=== PATIENT | male | born 1940 | race Caucasian/White ===

== ENCOUNTER 2019-07-25 11:11 | Outpatient (CLI) | payer MEDICARE, SELFPAY ==
--- NOTE | ~2019-07-25 | XR_ITS ---
EXAMINATION: XR shoulder RT min 2V DATE: 07/25/2019 11:31 INDICATION: Right shoulder pain. TECHNIQUE: 4 views of right shoulder were obtained. COMPARISON: None. FINDINGS: Bone alignment is normal. No fracture. Glenohumeral joint is normal. There is mild acromioc lavicular joint osteoarthritis. IMPRESSION: 1. Mild right acromioclavicular joint osteoarthritis. Reviewed, dictated and finalized at location E.
== END 2019-07-25 11:12 | disposition home or self-care (01) ==
PROVIDERS: PCP Internal Medicine; Visit Provider Internal Medicine
DX: M25.511 Pain in right shoulder (principal); W19.XXXA Unspecified fall, initial encounter; M19.011 Primary osteoarthritis, right shoulder
CPT/HCPCS: 73030

== ENCOUNTER 2019-08-11 07:28 | Outpatient (CLI) | payer MEDICARE, SELFPAY ==
--- NOTE | ~2019-08-11 | MR_ITS ---
EXAMINATION: MR shoulder RT wo con DATE: 08/11/2019 08:18 INDICATION: Anterosuperior right shoulder pain TECHNIQUE: Magnetic resonance imaging (MRI) of the right shoulder was performed without intravenous c ontrast. Sequences included axial PD-weighted FS FSE, coronal oblique PD-weighted FS FSE, coronal obl ique T2-weighted FS FSE, sagittal PD-weighted FS FSE, and sagittal T1-weighted SE. COMPARISON: Right shoulder radiographs dated 07/25/2019 FINDINGS: Coracoacromial arch: The acromion undersurface is curved in morphology (type II). The coracoacromial ligament is normal. M oderate acromioclavicular osteoarthritis. Rotator cuff: Severe supraspinatus and mild to moderate infraspinatus tendinopathy. There is an oblique full-thickn ess tear extending across the supraspinatus tendon. The tear versus conform to a longitudinal split t ear extending along the axis of the tendon fibers in the distal 3 cm of the tendon there is however n o widening of the tear plane, measurable fluid signal intensity tear defect or discrete retracted tea r margin. The teres minor tendon is normal. Moderate subscapularis tendinopathy with additional longi tudinal split tearing extending along the fibers in the distal 3 cm the tendon. Associated small intr amuscular ganglion cyst at the myotendinous junction of the central third of the tendon. Normal rotat or cuff muscle bulk and signal. Biceps tendon, glenoid labrum and glenohumeral cartilage: Long head of the biceps tendon is normal. There is a tear extending from the 12:00-9:00 position of t he posterior superior glenoid labrum. Partial-thickness cartilage loss with smooth chondral surface a long the posterior superior glenoid. Deeper full/near full-thickness chondral fissure is a rim of the 11:00 position of the posterosuperior glenoid. Cartilage the humeral head appears relatively preserv ed. Fluid: Small glenohumeral joint effusion. No loose osteochondral bodies. Small amount of fluid in the subacr omial/subdeltoid bursa and subcoracoid bursa which could be related to bursitis or more likely decomp ression of the glenohumeral joint effusion through the full-thickness supraspinatus tendon split tear . Bones: Normal marrow signal with no edema, fracture or pathologic marrow replacing process. Mild cystic linn ge at the greater tuberosity. IMPRESSION: 1. Severe supraspinatus tendinopathy with full-thickness longitudinal split tear extending along the distal 3 cm the tendon. 2. Moderate subscapularis tendinopathy with additional less severe partial thickness intrasubstance s plit tearing also in the distal 3 cm the tendon. 3. Superior, anterior to posterior tear of the glenoid labrum (SLAP tear) of the posterior superior l abrum extending from the 12:00-9:00 position. 4. Mild glenohumeral osteoarthritis with partial thickness cartilage loss and deep chondral fissuring at the posterior superior glenoid. 5. Moderate acromioclavicular osteoarthritis. 6. Fluid in the subacromial/subdeltoid and subcoracoid bursae which could be related to bursitis or m ore likely decompression of a glenohumeral effusion through the full-thickness supraspinatus tendon t ear. Reviewed, dictated and finalized at location A. IMPRESSION: 1. Severe supraspinatus tendinopathy with full-thickness longitudinal split tea r extending along the distal 3 cm the tendon. 2. Moderate subscapularis tendinopathy with additional less severe partial thic kness intrasubstance split tearing also in the distal 3 cm the tendon. 3. Superior, anterior to posterior tear of the glenoid labrum (SLAP tear) of th e posterior superior labrum extending from the 12:00-9:00 position. 4. Mild glenohumeral osteoarthritis with partial thickness cartilage loss and d eep chondral
== END 2019-08-11 07:29 | disposition home or self-care (01) ==
PROVIDERS: PCP Internal Medicine; Visit Provider Internal Medicine
DX: M25.519 Pain in unspecified shoulder (principal); S43.431A Superior glenoid labrum lesion of right shoulder, initial encounter; M75.81 Other shoulder lesions, right shoulder; M19.011 Primary osteoarthritis, right shoulder
CPT/HCPCS: 73221

== ENCOUNTER 2021-01-25 10:04 | Emergency (ER) | payer MEDICARE, SELFPAY ==
--- NOTE | 2021-01-25 10:15 | ED.URI ---
HPI - URI/Sore Throat General Chief Complaint: Upper Respiratory Infection Stated Complaint: Cough,Body Aches,Chest Congestion Time Seen by Provider: 01/25/21 10:16 Source: patient and RN notes reviewed Mode of arrival: ambulatory Limitations: no limitations History of Present Illness HPI Narrative: 80-year-old male presents with concern for 9-day history of sinus drainage and congestion. Reports he was seen by his doctor on Tuesday and was given cough medicine and medicine for dizziness. Reports the dizziness resolved after taking that medication. Reports on Tuesday his symptoms worsened with worsening cough, body aches, chest congestion. Reports he has been taking the cough medicine as prescribed but symptoms are worsening. He reports he has been vaccinated for Covid and flu. MD elicited complaint: cough Related Data Home Medications Medication Instructions Recorded Confirmed aspirin [Adult Low Dose Aspirin] 81 mg PO DAILY 01/12/19 01/25/21 ezetimibe [Zetia] 10 mg PO DAILY 01/12/19 01/25/21 fenofibrate nanocrystallized 145 mg PO DAILY 01/12/19 01/25/21 metoprolol succinate 50 mg PO DAILY 01/12/19 01/25/21 rivaroxaban [Xarelto] 20 mg PO DAILY 01/12/19 01/25/21 Allergies Allergy/AdvReac Type Severity Reaction Status Date / Time No Known Allergies Allergy Verified 01/25/21 10:23 Review of Systems Review of Systems: CONSTITUTIONAL: Reports malaise. Denies chills, sweats, or fever. EYES: Denies visual changes, redness, or discharge. ENT: Reports rhinorrhea, congestion. Denies sinus pain, otalgia, sore throat CARDIOVASCULAR: Denies chest pain, palpitations, or edema. RESPIRATORY: Reports productive persistent cough. Denies dyspnea. GASTROINTESTINAL: Denies abdominal pain, nausea, vomiting, diarrhea SKIN: Denies rash or itching. MUSCULOSKELETAL: Reports myalgia. NEUROLOGIC: Denies headache. All systems reviewed & are unremarkable except as noted in HPI and below PMFSH Past Medical History Medical History (Updated 01/25/21 @ 10:42 by Carmencita Dewitt NP) Elevated lipids Surgical History Surgical History History of heart artery stent History of hernia repair History of knee replacement Family History Family History Father Acute myocardial infarction Family history of coronary artery disease Mother Carcinoma of colon Other Family history of malignant neoplasm Social History Social History (Updated 01/13/21 @ 06:59 by Roma Cotter [facility]) Smoking packs per day: 0.25 Smoking cigarettes per day: 5.0 Years smoked: 5 Smoking pack-years: 1.25 Tobacco type: cigarettes Second hand tobacco smoke exposure: No Smoking end date: 03/07/91 Alcohol intake: never Substance use: never Substance use type: does not use Comments At time of signature, agree with nursing past medical, surgical, social and family history. There is no relevant family history pertinent to the presenting complaint Exam Narrative: GENERAL: Well-appearing, well-nourished, and in no acute distress. HEAD: Normocephalic EYES: PERRLA, conjunctivae clear ENT: Nares clear, green discharge. Mucous membranes moist. TM pearly becerra with dull light reflex bilaterally; no tragal tenderness. Oropharynx not erythematous without lesions. Tonsils not enlarged and without exudate, no drooling, no hoarseness, no trismus, uvula midline. NECK: Supple. No lymphadenopathy CHEST: Clear to auscultation, breath sounds equal. No wheezing, rhonchi, rales, or stridor. No respiratory distress, speaks in full sentences. Cough noted HEART: Regular rate and rhythm. No murmur heard. SKIN: Warm, dry, no rash. NEURO: Alert and oriented x3. PSYCH: Normal mood and affect Course Course Emergency Course: Patient is aware of diagnosis, understands and agrees to treatment plan. Anticipatory guidance given. Patient agrees to follow-up as directed
[2021-01-25 10:20] VITALS: BP 119/88; PULSE 96; RESP 20; TEMP 36.9; O2SAT 97
== END 2021-01-25 10:50 | disposition home or self-care (01) ==
PROVIDERS: Emergency Provider Nurse Practitioner; PCP Internal Medicine
DX: J32.9 Chronic sinusitis, unspecified (principal); J40 Bronchitis, not specified as acute or chronic; F17.210 Nicotine dependence, cigarettes, uncomplicated; Z79.82 Long term (current) use of aspirin
CPT/HCPCS: 99213; G0463

== ENCOUNTER 2021-03-31 16:10 | Emergency (ER) | payer MEDICARE, SELFPAY ==
--- NOTE | ~2021-03-31 | XR_ITS ---
XR chest 2V DATE: 03/31/2021 16:46 INDICATION: Cough, wheezing TECHNIQUE: 2 views COMPARISON: 01/25/2016 FINDINGS: Normal heart size. There is aortic calcification and tortuosity. No hilar or mediastinal enlargement. No pulmonary infiltrate or consolidation, pulmonary vascular congestion or pleural effu will or pneumothorax. Degenerative spurring of the thoracic and lumbar spine. IMPRESSION: No active cardiopulmonary disease Aortic calcification and tortuosity Reviewed, dictated and finalized at location A. LIGHTER
--- NOTE | 2021-03-31 16:24 | ED.URI ---
HPI - URI/Sore Throat General Chief Complaint: Upper Respiratory Infection Stated Complaint: Cough,Runny Nose Time Seen by Provider: 03/31/21 16:25 Source: patient and RN notes reviewed History of Present Illness HPI Narrative: Patient is an 81-year-old male who presents the urgent care with complaints of persistent post Covid cough and runny nose. Patient was seen at the facility in January and given a Medrol Dosepak and codeine cough medication. Patient states that he did the cough medication until it was complete. Patient states that his positive Covid test was 12 days ago. Patient denies of any recent fevers, nausea, vomiting, shortness of breath or chest pain. Patient states that he has been a to work out doing his normal activities. No other acute complaints. No acute distress noted. Patient aware of the plan of care. Some parts of this dictation were generated by voice recognition software and may contain typographical and/or grammatical inaccuracies. Related Data Home Medications Medication Instructions Recorded Confirmed aspirin [Adult Low Dose Aspirin] 81 mg PO DAILY 01/12/19 03/31/21 ezetimibe [Zetia] 10 mg PO DAILY 01/12/19 03/31/21 fenofibrate nanocrystallized 145 mg PO DAILY 01/12/19 03/31/21 metoprolol succinate 50 mg PO DAILY 01/12/19 03/31/21 rivaroxaban [Xarelto] 20 mg PO DAILY 01/12/19 03/31/21 Allergies Allergy/AdvReac Type Severity Reaction Status Date / Time No Known Allergies Allergy Verified 01/25/21 10:23 Review of Systems Review of Systems: CONSTITUTIONAL: Denies fever, chills, or sweats. EYES: Denies visual changes, redness, or discharge. ENT: Reports of rhinorrhea without sore throat or congestion CARDIOVASCULAR: Denies chest pain, palpitations, or edema. RESPIRATORY: Reports of cough without dyspnea or wheezing GASTROINTESTINAL: Denies abdominal pain, nausea, vomiting, or diarrhea. GENITOURINARY: Denies dysuria or hematuria. SKIN: Denies rash or itching. MUSCULOSKELETAL: Denies back pain, joint pain, or myalgia. NEUROLOGIC: Denies headache, numbness, or weakness. All other systems reviewed are negative, except as documented in HPI. [facility] Past Medical History Medical History (Updated 03/31/21 @ 17:36 by SUE Lizama) Elevated lipids Surgical History Surgical History History of heart artery stent History of hernia repair History of knee replacement Family History Family History Father Acute myocardial infarction Family history of coronary artery disease Mother Carcinoma of colon Other Family history of malignant neoplasm Social History Social History (Updated 01/13/21 @ 06:59 by Roma Cotter CNA) Smoking packs per day: 0.25 Smoking cigarettes per day: 5.0 Years smoked: 5 Smoking pack-years: 1.25 Tobacco type: cigarettes Second hand tobacco smoke exposure: No Smoking end date: 03/07/91 Alcohol intake: never Substance use: never Substance use type: does not use Comments At the time of my signature, I reviewed and agree with the nursing past medical, surgical, social, and family history. There is no relevant family history pertinent to the patient complaint. Exam Narrative: GENERAL: This is a well-nourished, well-developed patient, in no apparent distress. HEAD: normocephalic, atraumatic. EYES: PERRL. Sclera clear/white. Vision is grossly intact. EARS: External ears normal, auditory canals clear and without drainage, TMs normal without perforation. Hearing grossly intact. NOSE: External nose normal with no obvious nasal discharge, nares without redness, clear rhinorrhea. THROAT: Mucous membranes moist, posterior pharynx clear. NECK: Neck supple, non-tender without lymphadenopathy, masses or thyromegaly. CARDIOVASCULAR: Atrial fibrillation RESPIRATORY: Clear to auscultation. Slightly diminished left lower SKIN: warm, intact
[2021-03-31 16:36] VITALS: BP 140/94; PULSE 92; RESP 18; TEMP 35.9; O2SAT 98
== END 2021-03-31 17:42 | disposition home or self-care (01) ==
PROVIDERS: Emergency Provider Nurse Practitioner Family; PCP Internal Medicine
DX: J40 Bronchitis, not specified as acute or chronic (principal); R05.9 Cough, unspecified; U09.9 Post COVID-19 condition, unspecified; Z95.5 Presence of coronary angioplasty implant and graft; Z96.659 Presence of unspecified artificial knee joint; F17.210 Nicotine dependence, cigarettes, uncomplicated
CPT/HCPCS: 71046; 99213; G0463

== ENCOUNTER 2021-06-28 10:05 | Emergency (ER) | payer MEDICARE, SELFPAY ==
[2021-06-28 10:13] VITALS: BP 119/83; PULSE 86; RESP 18; TEMP 36.2; O2SAT 99
--- NOTE | 2021-06-28 10:13 | ED.URI ---
HPI - URI/Sore Throat General Chief Complaint: Upper Respiratory Infection Stated Complaint: Cough,Sinus Time Seen by Provider: 06/28/21 10:14 Source: patient Mode of arrival: ambulatory Limitations: no limitations History of Present Illness HPI Narrative: 81-year-old male presents with complaint of sinus and nasal congestion, postnasal drainage, intermittent sore throat related to drainage, cough for 2 to 3 days. Denies fever chills. Did start a generic allergy medication. Denies shortness of breath. Reports that he has been active and golfing outside. Recent symptoms have slowed him down causing facial pain. Reports he was here 6 months ago and received an antibiotic and steroids that really helped him. All systems reviewed and negative except as noted above. Related Data Home Medications Medication Instructions Recorded Confirmed aspirin [Adult Low Dose Aspirin] 81 mg PO DAILY 01/12/19 06/28/21 ezetimibe [Zetia] 10 mg PO DAILY 01/12/19 06/28/21 fenofibrate nanocrystallized 145 mg PO DAILY 01/12/19 06/28/21 metoprolol succinate 50 mg PO DAILY 01/12/19 06/28/21 rivaroxaban [Xarelto] 20 mg PO DAILY 01/12/19 06/28/21 Allergies Allergy/AdvReac Type Severity Reaction Status Date / Time No Known Allergies Allergy Verified 06/28/21 10:06 Review of Systems Review of Systems: CONSTITUTIONAL: Denies fever, chills, or sweats. EYES: Denies visual changes, redness, or discharge. ENT: Reports rhinorrhea, congestion, sore throat, or otalgia. CARDIOVASCULAR: Denies chest pain, palpitations, or edema. RESPIRATORY: Reports cough. Denies dyspnea. GASTROINTESTINAL: Denies abdominal pain, nausea, vomiting, or diarrhea. GENITOURINARY: Denies dysuria or hematuria. SKIN: Denies rash or itching. MUSCULOSKELETAL: Denies back pain, joint pain, or myalgia. NEUROLOGIC: Denies headache, numbness, or weakness. PSYCHIATRIC: Denies anxiety or depression. All other systems reviewed are negative, except as documented in HPI. [facility] Past Medical History Medical History (Updated 06/28/21 @ 10:28 by Irene Whittington NP) COVID-19 Elevated lipids Fasting hyperglycemia Surgical History Surgical History History of heart artery stent History of hernia repair History of knee replacement Family History Family History Father Acute myocardial infarction Family history of coronary artery disease Mother Carcinoma of colon Other Family history of malignant neoplasm Social History Social History Social History: pt stopped smoking 30 years ago Smoking packs per day: 0.25 Smoking cigarettes per day: 5.0 Years smoked: 5 Smoking pack-years: 1.25 Smoking status: Former smoker Tobacco type: cigarettes Second hand tobacco smoke exposure: No Smoking end date: 03/07/91 Alcohol intake: never Substance use: never Substance use type: does not use Comments At time of signature, agree with nursing past medical, surgical, social and family history. There is no relevant family history pertinent to the presenting complaint. Exam Narrative: GENERAL: This is a well-nourished, well-developed patient, in no apparent distress. HEAD: normocephalic, atraumatic. EYES: PERRL. Sclera clear/white. Vision is grossly intact. EARS: External ears normal, auditory canals clear and without drainage, mild fluid to bilateral TMs, dull light reflex. No erythema or perforation. NOSE: External nose normal with clear nasal drainage mild erythema to bilateral naris. THROAT: Mucous membranes moist, erythema to posterior pharynx with clear postnasal drainage. NECK: Neck supple, non-tender without lymphadenopathy, masses or thyromegaly. CARDIOVASCULAR: Regular rate and rhythm without murmurs, gallops, or rubs. RESPIRATORY: Clear to auscultation. Breath sounds equal bilat
== END 2021-06-28 10:30 | disposition home or self-care (01) ==
PROVIDERS: Emergency Provider Nurse Practitioner Family; PCP Internal Medicine
DX: J01.90 Acute sinusitis, unspecified (principal); Z87.891 Personal history of nicotine dependence; Z95.5 Presence of coronary angioplasty implant and graft; Z96.659 Presence of unspecified artificial knee joint; Z86.16 Personal history of COVID-19; Z79.82 Long term (current) use of aspirin; Z79.01 Long term (current) use of anticoagulants
CPT/HCPCS: 99213; G0463

== ENCOUNTER 2021-12-01 08:00 | Outpatient (NON) | payer MEDICARE, SELFPAY | END 2021-12-01 08:01 | disposition home or self-care (01) | LOC: ANHLAB 12-02 08:35 | PROVIDERS: PCP Internal Medicine; Visit Provider Internal Medicine Gastroenterology | DX: Z86.010 Personal history of colon polyps (principal) | CPT/HCPCS: 88305 ==

== ENCOUNTER 2021-12-01 10:52 | Day surgery (SDC) | payer MEDICARE, SELFPAY ==
[2021-10-12 11:27] VITALS: BMI 33.3
[2021-11-17 13:11] VITALS: BMI 33.9
[2021-12-01 11:20] VITALS: BP 169/105; PULSE 94; RESP 20; TEMP 36.2; O2SAT 100
--- NOTE | 2021-12-01 11:39 | WPDANESEPPF ---
Anes - Initial Pre Proc Eval Procedure: Operation Date: 12/01/21 12:30 Proposed Procedures p Screening Colonoscopy - Ren Pineda MD Date/Time: 12/01/21 11:39 Surgeon: Ren Pineda MD Pre Op Diagnosis: Family History of Colon Cancer, History of Polyps Patient Data Age: 81 Gender: M Height: 1.91 m Weight: 122.6 kg Allergies Allergy/AdvReac Type Severity Reaction Status Date / Time No Known Allergies Allergy Verified 12/01/21 11:17 Home Medications Medication Instructions Recorded Confirmed Type aspirin 81 mg tablet,delayed 81 mg PO HS 01/12/19 12/01/21 History release (Adult Low Dose Aspirin) ezetimibe 10 mg tablet (Zetia) 10 mg PO HS 01/12/19 12/01/21 History fenofibrate nanocrystallized 145 145 mg PO DAILY 01/12/19 12/01/21 History mg tablet metoprolol succinate 50 mg capsule 50 mg PO HS 01/12/19 12/01/21 History sprinkle, ext. release 24 hr rivaroxaban 20 mg tablet (Xarelto) 20 mg PO HS 01/12/19 12/01/21 History nitroglycerin 0.4 mg sublingual 0.4 mg sublingual Q5M PRN chest 07/02/19 11/17/21 Rx tablet pain #30 tabs codeine 10 mg-guaifenesin 100 mg/5 5 ml PO Q6H PRN cough #120 mL 06/28/21 12/01/21 Rx mL oral liquid (Virtussin AC) losartan 100 mg tablet 100 mg PO DAILY #90 tabs 09/23/21 12/01/21 Rx Patient hx anesthesia problems: none Family hx anesthesia problems: none Results Review: All pre-operative results and documents have been reviewed as part of the pre-operative evaluation. [facility] Past Medical History Medical History Anxiety Atrial fibrillation, chronic Hyperlipidemia LDL goal <100 Hypertension Surgical History Surgical History History of heart artery stent History of hernia repair History of knee replacement Family History Family History Father Acute myocardial infarction Family history of coronary artery disease Mother Carcinoma of colon Other Family history of malignant neoplasm Social History Social History Social History: pt stopped smoking 30 years ago Smoking packs per day: 0.5 Smoking cigarettes per day: 10.0 Years smoked: 10 Smoking pack-years: 5.00 Smoking status: Former smoker Tobacco type: cigarettes Second hand tobacco smoke exposure: No Smoking end date: 03/07/91 Alcohol intake: current Drinks per week: 1 Alcohol use details: 2 DRINKS PER MONTH Substance use: never Substance use type: does not use Living arrangements: with family Spiritual care concerns: No Anes - Eval Final PreProcedure Day of Procedure 12/01/21 11:39 Patient weight: obese Heart: regular rate and rhythm Lungs: clear to auscultation Airway: Mallampati scale class II Neurological: alert and oriented Last oral intake: >/= 8 hours ASA classification: III Emergent: no Anesthetic plan: proceed Anesthesia type and monitoring: general GIVS and standard monitoring Results Review: All pre-operative results and documents have been reviewed as part of the pre-operative evaluation. Informed Consent: The patient's anesthetic plan and its attendant risks and benefits were discussed with the patient/family/POA. Questions were solicited and answers provided to the satisfaction of the patient/family/POA.
[2021-12-01] MEDS: LACTATED RINGERS 1,000 ML 150 ML IV CONT (11:41)
--- NOTE | 2021-12-01 12:35 | PM.HPGS ---
History of Present Illness History of Present Illness Consent: Risks, benefits, and alternatives have been discussed and questions answered. Patient agrees to proceed with procedure. Chief complaint: Family History of Colon Cancer, History of Polyps Narrative: Justen Aguilar is a 81 year old male Presents for screening colonoscopy. Patient's current weight appetite and bowel movements are normal. Patient denies abdominal pain. He has had no bleeding. Patient has a history of adenomatous colon polyp removed in the colon 2015. Family history is significant his mother had colon cancer. Patient presents today for screening colonoscopy. Review of Systems Review of Systems: Review of systems noncontributory. [facility] Past Medical History Medical History Anxiety Atrial fibrillation, chronic Hyperlipidemia LDL goal <100 Hypertension Surgical History Surgical History History of heart artery stent History of hernia repair History of knee replacement Family History Family History Father Acute myocardial infarction Family history of coronary artery disease Mother Carcinoma of colon Other Family history of malignant neoplasm Social History Social History Social History: pt stopped smoking 30 years ago Smoking packs per day: 0.5 Smoking cigarettes per day: 10.0 Years smoked: 10 Smoking pack-years: 5.00 Smoking status: Former smoker Tobacco type: cigarettes Second hand tobacco smoke exposure: No Smoking end date: 03/07/91 Alcohol intake: current Drinks per week: 1 Alcohol use details: 2 DRINKS PER MONTH Substance use: never Substance use type: does not use Living arrangements: with family Spiritual care concerns: No Meds Home Medications and Allergies Home Medications Medication Instructions Recorded Confirmed Type aspirin 81 mg tablet,delayed 81 mg PO HS 01/12/19 12/01/21 History release (Adult Low Dose Aspirin) ezetimibe 10 mg tablet (Zetia) 10 mg PO HS 01/12/19 12/01/21 History fenofibrate nanocrystallized 145 145 mg PO DAILY 01/12/19 12/01/21 History mg tablet metoprolol succinate 50 mg capsule 50 mg PO HS 01/12/19 12/01/21 History sprinkle, ext. release 24 hr rivaroxaban 20 mg tablet (Xarelto) 20 mg PO HS 01/12/19 12/01/21 History nitroglycerin 0.4 mg sublingual 0.4 mg sublingual Q5M PRN chest 07/02/19 11/17/21 Rx tablet pain #30 tabs codeine 10 mg-guaifenesin 100 mg/5 5 ml PO Q6H PRN cough #120 mL 06/28/21 12/01/21 Rx mL oral liquid (Virtussin AC) losartan 100 mg tablet 100 mg PO DAILY #90 tabs 09/23/21 12/01/21 Rx Allergies Allergy/AdvReac Type Severity Reaction Status Date / Time No Known Allergies Allergy Verified 12/01/21 11:17 Vital Signs Vital Signs - 24 hr 12/01/21 11:20 Temperature 97.2 F L Pulse Rate 94 Respiratory Rate 20 Blood Pressure 169/105 H Pulse Oximetry 100 Oxygen Delivery Room Air Exam Narrative: Physical exam reveals patient be alert. Vital signs stable. HEENT exam is unremarkable. Patient is anicteric. Lungs are clear to auscultation and percussion. Heart is without murmur or extra sounds. Abdomen bowel sounds present soft nontender with no hepatosplenomegaly. Digital external rectal exam is normal. Assessment and Plan Assessment and plan (1) History of colon polyps: Code(s): Z86.010 - Personal history of colonic polyps Status: Acute Assessment and Plan: Patient has history of adenomatous colon polyp removed by colonoscopy 2016. Plan is for surveillance colonoscopy now further recommendations will be given after endoscopy. (2) Family history of colon cancer in mother: Code(s): Z80.0 - Family history of malignant neoplasm of dige
[2021-12-01 13:09] VITALS: BP 104/73; PULSE 54; RESP 12; O2SAT 96
[2021-12-01 13:19] VITALS: BP 118/64; PULSE 93; RESP 16; O2SAT 98
[2021-12-01 13:29] VITALS: BP 121/82; PULSE 80; RESP 16; O2SAT 98
--- NOTE | 2021-12-01 13:29 | WPDANESPN ---
Anes - Prog Note Post-Op Date/Time: 12/01/21 13:29 Cardiovascular status: normal Respiratory status: normal Airway patency: baseline Mental status: baseline Post-Op hydration status: normal Vital Signs: Last Vital Signs Temp 36.2 C L 12/01/21 11:20 Pulse 93 12/01/21 13:19 Resp 16 12/01/21 13:19 BP 118/64 12/01/21 13:19 Pulse Ox 98 12/01/21 13:19 O2 Del Method Room Air 12/01/21 13:19 Pain Score (VAS): 0 I/O: Intake & Output 11/30/21 12/01/21 12/01/21 23:59 07:59 15:59 Intake Total 500 Balance 500 Patient Feedback: Patient satisfied with anesthetic care.
--- NOTE | 2021-12-01 13:30 | SUR.PHASEII ---
PT AWAKE AND ALERT. TALKATIVE. EATING AND DRINKING. SPOUSE AT BEDSIDE. DENIES PAIN
--- NOTE | 2021-12-01 13:45 | SUR.PHASEII ---
PT AWAKE AND ALERT. MEETS DISCHARGE CRITERIA. WAITING TO SPEAK TO DR EASTMAN. DR EASTMAN NOTIFIED.
== END 2021-12-01 13:55 | disposition home or self-care (01) ==
PROVIDERS: PCP Internal Medicine; Visit Provider Internal Medicine Gastroenterology
PROC: 0DJD8ZZ Inspection of Lower Intestinal Tract, Via Natural or Artificial Opening Endoscopic (ICD-10-PCS; CPT 45378; principal; 2021-12-01 12:30)
DX: Z86.010 Personal history of colon polyps (principal)
CPT/HCPCS: 45385; 45380

== ENCOUNTER 2021-12-18 10:18 | Emergency (ER) | payer MEDICARE, SELFPAY ==
--- NOTE | 2021-12-18 10:19 | ED.EYEPROB ---
HPI - Eye Problem General Chief complaint: Eye Problems Stated complaint: ITCHY WATERY EYES Time Seen by Provider: 12/18/21 10:18 Source: patient Mode of arrival: ambulatory Limitations: no limitations History of Present Illness HPI Narrative: Mr. Aguilar is a 81-year-old male patient presenting to the clinic today with complaints of itchy watery eyes x 3days. He reports his right eye started with itching 3 days ago and began watering real bad yesterday and this morning he woke up with his right eye matted shut. He reports that his left eye is beginning to itch and water now. States his just had this last week Related Data Home Medications Medication Instructions Recorded Confirmed aspirin 81 mg tablet,delayed 81 mg PO HS 01/12/19 12/18/21 release (Adult Low Dose Aspirin) ezetimibe 10 mg tablet (Zetia) 10 mg PO HS 01/12/19 12/18/21 fenofibrate nanocrystallized 145 145 mg PO DAILY 01/12/19 12/18/21 mg tablet metoprolol succinate 50 mg capsule 50 mg PO HS 01/12/19 12/18/21 sprinkle, ext. release 24 hr rivaroxaban 20 mg tablet (Xarelto) 20 mg PO HS 01/12/19 12/18/21 Allergies Allergy/AdvReac Type Severity Reaction Status Date / Time No Known Allergies Allergy Verified 12/18/21 10:28 Review of Systems Review of Systems: Pertinent positives per HPI. Patient denies any fever, chills, rash, headache, visual changes, dizziness, cough, runny nose, sore throat, shortness of breath, chest pain, palpitations, nausea, vomiting, diarrhea, constipation, abdominal pain, or any urinary issues. [facility] Past Medical History Medical History Anxiety Atrial fibrillation, chronic Hyperlipidemia LDL goal <100 Hypertension Surgical History Surgical History History of heart artery stent History of hernia repair History of knee replacement Family History Family History Father Acute myocardial infarction Family history of coronary artery disease Mother Carcinoma of colon Other Family history of malignant neoplasm Social History Social History Social History: pt stopped smoking 30 years ago Smoking packs per day: 0.5 Smoking cigarettes per day: 10.0 Years smoked: 10 Smoking pack-years: 5.00 Smoking status: Former smoker Tobacco type: cigarettes Second hand tobacco smoke exposure: No Smoking end date: 03/07/91 Alcohol intake: current Drinks per week: 1 Alcohol use details: 2 DRINKS PER MONTH Substance use: never Substance use type: does not use Spiritual care concerns: No Comments At the time of my signature, I reviewed and agree with the nursing past medical, surgical, social, and family history. There is no relevant family history pertinent to the patient complaint. Exam Narrative: General: Well-developed, well nourished, in no apparent distress Head: Normocephalic, atraumatic Eyes: Pupils equally round and reactive to light bilaterally, EOM intact, bilateral sclera irritated and conjunctiva injected right greater than left, mucopurulent yellow discharge, right lower eyelid swelling, left eyelids normal Ears: TMs intact and clear, ear canals clear, no drainage, grossly hearing normal. Nose: Nares patent, no discharge, no inflammation, no sinus tenderness. Mouth: Oropharynx without lesions or masses, good dentition, MMM. Neck: Supple, trachea midline, no enlargement of anterior or posterior cervical nodes, no thyroid masses or goiter palpable. Cardio: Regular rate and rhythm, s1 and s2 normal, no murmur appreciated. Resp: Clear to auscultation bilaterally anteriorly and posteriorly, no rhonchi, rales, wheezing or rubs Course Course Emergency Course: Portions of this record may have been created with voice recog
[2021-12-18 10:23] VITALS: BP 126/88; PULSE 70; RESP 18; TEMP 36.6; O2SAT 98
== END 2021-12-18 10:38 | disposition home or self-care (01) ==
PROVIDERS: Emergency Provider Nurse Practitioner Family; PCP Internal Medicine
DX: H10.33 Unspecified acute conjunctivitis, bilateral (principal); Z79.82 Long term (current) use of aspirin; I48.20 Chronic atrial fibrillation, unspecified; Z79.01 Long term (current) use of anticoagulants; E78.5 Hyperlipidemia, unspecified; I10 Essential (primary) hypertension; Z96.659 Presence of unspecified artificial knee joint; Z87.891 Personal history of nicotine dependence
CPT/HCPCS: 99213; G0463

== ENCOUNTER 2022-01-24 10:31 | Emergency (ER) | payer MEDICARE, SELFPAY ==
[2022-01-24 10:40] VITALS: BP 132/72; PULSE 90; RESP 18; TEMP 36.2; O2SAT 96
--- NOTE | 2022-01-24 11:35 | ED.URI ---
HPI - URI/Sore Throat General Chief Complaint: Upper Respiratory Infection Stated Complaint: Congestion Source: patient Mode of arrival: ambulatory Limitations: no limitations History of Present Illness HPI Narrative: 81-year-old male presents to [facility] with complaints of nasal congestion, sinus pressure and productive cough of yellow-colored phlegm for the past 3-4 days. Patient reports that he had a positive at-home COVID test. Patient denies shortness of breath, wheezing, nausea, vomiting, diarrhea, body aches or chills. Patient reports that his highest temperature reading was 99.1. Patient denies sick contacts. Patient denies recent travel. Patient is a nonsmoker. Patient reports that he has Robitussin with codeine at home per his primary care provider. Patient reports that his primary care provider started him on cefdinir three days ago which has not been helping his symptoms. MD elicited complaint: cough, rhinorrhea and nasal congestion Onset (ago): day(s) (3-4) Able to tolerate fluids by mouth: Yes Treatments prior to arrival: none Related Data Home Medications Medication Instructions Recorded Confirmed aspirin 81 mg tablet,delayed 81 mg PO HS 01/12/19 01/24/22 release (Adult Low Dose Aspirin) ezetimibe 10 mg tablet (Zetia) 10 mg PO HS 01/12/19 01/24/22 fenofibrate nanocrystallized 145 145 mg PO DAILY 01/12/19 01/24/22 mg tablet metoprolol succinate 50 mg capsule 50 mg PO HS 01/12/19 01/24/22 sprinkle, ext. release 24 hr rivaroxaban 20 mg tablet (Xarelto) 20 mg PO HS 01/12/19 01/24/22 Allergies Allergy/AdvReac Type Severity Reaction Status Date / Time No Known Allergies Allergy Verified 01/24/22 10:59 Review of Systems Constitutional: Constitutional: Denies chills, Denies fatigue, Denies fever(s) and Denies weakness ENT: Denies dizziness, Denies epistaxis and Reports nasal congestion Comments: runny nose Cardiovascular: Cardiovascular: Denies chest pain, Denies rapid heart rate and Denies slow heart rate Respiratory: Respiratory: Denies chest congestion, Reports cough, Denies dyspnea and Denies wheezing Integumentary/Breasts: Skin/Breast: Denies rash Neurologic: Denies vertigo, Denies dizziness and Denies syncope Allergic/Immunologic: Allergic/Immunologic: Denies lip swelling, Denies throat swelling, Denies tongue swelling and Denies wheezing PMFSH Past Medical History Medical History Anxiety Atrial fibrillation, chronic Hyperlipidemia LDL goal <100 Hypertension Surgical History Surgical History History of heart artery stent History of hernia repair History of knee replacement Family History Family History Father Acute myocardial infarction Family history of coronary artery disease Mother Carcinoma of colon Other Family history of malignant neoplasm Social History Social History Social History: pt stopped smoking 30 years ago Smoking packs per day: 0.5 Smoking cigarettes per day: 10.0 Years smoked: 10 Smoking pack-years: 5.00 Smoking status: Former smoker Tobacco type: cigarettes Second hand tobacco smoke exposure: No Smoking end date: 03/07/91 Alcohol intake: current Drinks per week: 1 Alcohol use details: 2 DRINKS PER MONTH Substance use: never Substance use type: does not use Spiritual care concerns: No Comments At time of signature, I agree with nursing past medical, surgical, social and family history. There is no relevant family history pertinent to the presenting complaint. Exam Const: General: healthy appearing Nutritional Appearance: well nourished Orientation/consciousness: patient oriented x3 Limitations: no limitations HENMT: Head: normal to inspection Ears: external ears normal F
== END 2022-01-24 11:57 | disposition home or self-care (01) ==
PROVIDERS: Emergency Provider Nurse Practitioner Family; PCP Internal Medicine
DX: U07.1 COVID-19 (principal); Z79.82 Long term (current) use of aspirin; I48.20 Chronic atrial fibrillation, unspecified; E78.5 Hyperlipidemia, unspecified; I10 Essential (primary) hypertension; Z87.891 Personal history of nicotine dependence
CPT/HCPCS: 87426; 99213; C9803; G0463

== ENCOUNTER 2022-04-28 10:00 | Emergency (ER) | payer MEDICARE, SELFPAY ==
--- NOTE | 2022-04-28 10:08 | ED.URI ---
HPI - URI/Sore Throat General Chief Complaint: Upper Respiratory Infection Stated Complaint: congestion,cough Time Seen by Provider: 04/28/22 10:07 Source: patient Mode of arrival: ambulatory Limitations: no limitations History of Present Illness HPI Narrative: Justen is an 82-year-old male patient presenting to the clinic today with complaints of cough and congestion x4 days. He reports he did an at-home COVID test yesterday and was negative. He is unable to get into his doctor until the 16 of May. He denies any fever, chills, shortness breath, or chest pain. Reports that he has some sinus pressure, congestion, and productive cough bringing up some yellowish green phlegm. MD elicited complaint: sore throat and nasal congestion Related Data Home Medications Medication Instructions Recorded Confirmed aspirin 81 mg tablet,delayed 81 mg PO HS 01/12/19 02/04/22 release (Adult Low Dose Aspirin) fenofibrate nanocrystallized 145 145 mg PO DAILY 01/12/19 02/04/22 mg tablet metoprolol succinate 50 mg capsule 50 mg PO HS 01/12/19 02/04/22 sprinkle, ext. release 24 hr rivaroxaban 20 mg tablet (Xarelto) 20 mg PO HS 01/12/19 02/04/22 Allergies Allergy/AdvReac Type Severity Reaction Status Date / Time No Known Allergies Allergy Verified 02/04/22 09:42 Review of Systems Review of Systems: Pertinent positives per HPI. Patient denies any fever, chills, rash, headache, visual changes, dizziness, shortness of breath, chest pain, palpitations, nausea, vomiting, diarrhea, constipation, abdominal pain, or any urinary issues. [facility] Past Medical History Medical History Anxiety Atrial fibrillation, chronic Hyperlipidemia LDL goal <100 Hypertension Surgical History Surgical History History of heart artery stent History of hernia repair History of knee replacement Family History Family History Father Acute myocardial infarction Family history of coronary artery disease Mother Carcinoma of colon Other Family history of malignant neoplasm Social History Social History (Reviewed 04/28/22 @ 10:08 by YANCI Waggoner Social History: pt stopped smoking 30 years ago Smoking packs per day: 0.5 Smoking cigarettes per day: 10.0 Years smoked: 10 Smoking pack-years: 5.00 Smoking status: Former smoker Tobacco type: cigarettes Second hand tobacco smoke exposure: No Smoking end date: 03/07/91 Alcohol intake: current Drinks per week: 1 Alcohol use details: 2 DRINKS PER MONTH Substance use: never Substance use type: does not use Lack of Transportation: No Lack of Food: Never True Current Housing: I Have Housing Concerned About Future Housing: No Difficulty Paying Gas/Electric Bills: No Difficulty Paying for Meds: No Currently Unemployed: No Education: Master's Degree or Higher Difficulty w/ Childcare or Family Care: No Living arrangements: with family Occupation/Education: retired Gender identity (if verbalized by the patient): Male Sexual Orientation (if Verbalized by the Patient): Straight or Heterosexual Spiritual care concerns: No Comments At the time of my signature, I reviewed and agree with the nursing past medical, surgical, social, and family history. There is no relevant family history pertinent to the patient complaint. Exam Narrative: General: Well-developed, well nourished, in no apparent distress Head: Normocephalic, atraumatic Eyes: Pupils equally round and reactive to light bilaterally, EOM intact, sclera and conjunctive clear, no discharge, lids normal Ears: TMs intact and clear, ear canals clear, no drainage, grossly hearing normal. Nose: Nares patent, clear discharge, mild inflammation, mild sinus tenderness. Mouth: Oral pharynx
[2022-04-28 10:18] VITALS: BP 103/74; PULSE 104; RESP 20; TEMP 36.4; O2SAT 95
== END 2022-04-28 10:40 | disposition home or self-care (01) ==
LOC: EXPTROY 10:12
PROVIDERS: Emergency Provider Nurse Practitioner Family; PCP Internal Medicine
DX: J06.9 Acute upper respiratory infection, unspecified (principal); R09.82 Postnasal drip; I48.20 Chronic atrial fibrillation, unspecified; E78.5 Hyperlipidemia, unspecified; I10 Essential (primary) hypertension; Z87.891 Personal history of nicotine dependence
CPT/HCPCS: 99213; G0463

== ENCOUNTER 2022-07-02 09:49 | Emergency (ER) | payer MEDICARE, SELFPAY ==
[2022-07-02 10:00] VITALS: BP 124/69; PULSE 83; RESP 18; TEMP 36.7; O2SAT 97
--- NOTE | 2022-07-02 10:37 | ED.URI ---
HPI - URI/Sore Throat General Chief Complaint: Upper Respiratory Infection Stated Complaint: Sinus Time Seen by Provider: 07/02/22 10:27 Source: patient and RN notes reviewed Mode of arrival: ambulatory Limitations: no limitations History of Present Illness HPI Narrative: Patient presents today complaining of 4 day history of postnasal drip and cough. Denies congestion, rhinorrhea, fever, shortness of breath. States he wanted to get checked out because he is leaving for vacation shortly. Denies history of asthma, COPD, seasonal allergies. Tested himself at home twice for COVID in the were negative. He is a nonsmoker. States his cough is worse at night, but states he only coughs sporadically during the day. He takes a dose of codeine cough medicine before he goes to bed, prescribed by his PCP. Related Data Home Medications Medication Instructions Recorded Confirmed aspirin 81 mg tablet,delayed 81 mg PO HS 01/12/19 07/02/22 release (Adult Low Dose Aspirin) fenofibrate nanocrystallized 145 145 mg PO DAILY 01/12/19 07/02/22 mg tablet rivaroxaban 20 mg tablet (Xarelto) 20 mg PO HS 01/12/19 07/02/22 nitroglycerin 0.4 mg sublingual 0.4 mg sublingual Q5-15M PRN Chest 07/02/22 07/02/22 tablet Pain Allergies Allergy/AdvReac Type Severity Reaction Status Date / Time No Known Allergies Allergy Verified 07/02/22 10:04 Review of Systems Review of Systems: CONSTITUTIONAL: Denies body aches, fever, chills, or sweats. EYES: Denies visual changes, redness, or discharge. ENT: Denies rhinorrhea, congestion, sore throat, or otalgia.+ postnasal drip CARDIOVASCULAR: Denies chest pain, palpitations, or edema. RESPIRATORY: Denies dyspnea.+ cough GASTROINTESTINAL: Denies abdominal pain, nausea, vomiting, or diarrhea. GENITOURINARY: Denies dysuria or hematuria. SKIN: Denies rash, itching, or wounds. MUSCULOSKELETAL: Denies back pain, joint pain, or myalgia. NEUROLOGIC: Denies headache, numbness, tingling, or weakness. PSYCH: Denies depression or anxiety. [facility] Past Medical History Medical History Anxiety Atrial fibrillation, chronic Hyperlipidemia LDL goal <100 Hypertension Surgical History Surgical History History of heart artery stent History of hernia repair History of knee replacement Family History Family History Father Acute myocardial infarction Family history of coronary artery disease Mother Carcinoma of colon Other Family history of malignant neoplasm Social History Social History Social History: pt stopped smoking 30 years ago Smoking packs per day: 0.5 Smoking cigarettes per day: 10.0 Years smoked: 10 Smoking pack-years: 5.00 Smoking status: Former smoker Tobacco type: cigarettes Second hand tobacco smoke exposure: No Smoking end date: 03/07/91 Alcohol intake: current Drinks per week: 0 Alcohol use details: 2 DRINKS PER MONTH Substance use: never Substance use type: does not use Lack of Transportation: No Lack of Food: Never True Current Housing: I Have Housing Concerned About Future Housing: No Difficulty Paying Gas/Electric Bills: No Difficulty Paying for Meds: No Currently Unemployed: No Education: Master's Degree or Higher Difficulty w/ Childcare or Family Care: No Living arrangements: with family Occupation/Education: retired Gender identity (if verbalized by the patient): Male Sexual Orientation (if Verbalized by the Patient): Straight or Heterosexual Spiritual care concerns: No Comments At time of signature, I have reviewed and agree with nursing past medical, surgical, social and family history unless otherwise noted. Please see nursing chart for further information. Ther
== END 2022-07-02 10:42 | disposition home or self-care (01) ==
PROVIDERS: Emergency Provider Nurse Practitioner; PCP Internal Medicine
DX: J30.2 Other seasonal allergic rhinitis (principal); Z87.891 Personal history of nicotine dependence; I48.20 Chronic atrial fibrillation, unspecified; E78.5 Hyperlipidemia, unspecified; I10 Essential (primary) hypertension; Z79.82 Long term (current) use of aspirin
CPT/HCPCS: 99213; G0463

== ENCOUNTER 2022-07-03 13:44 | Emergency (ER) | payer MEDICARE, SELFPAY ==
[2022-07-03 14:00] VITALS: BP 124/79; PULSE 85; RESP 18; TEMP 36.9; O2SAT 96
--- NOTE | 2022-07-03 14:10 | ED.GENADULT ---
HPI - General Adult General Chief complaint: Upper Respiratory Infection Stated complaint: cough,nasal drainage Time Seen by Provider: 07/03/22 14:10 Source: patient Mode of arrival: ambulatory Limitations: no limitations History of Present Illness HPI narrative: 82-year-old male patient presents to the [facility] with complaints of cough and nasal drainage for the past 4 days. Patient was seen here yesterday and was diagnosed with seasonal allergies and recommended to take Zyrtec. Patient states he has taken 1 Zyrtec but states that is not helped and wanted to come to be re-evaluated. Patient denies any fevers, body aches or chills. Denies any chest pain or shortness of breath. Denies any abdominal pain, nausea, vomiting or diarrhea. Patient states biggest complaint is that he has been having nasal drainage that goes that the throat and has a cough and coughing up phlegm at times. Related Data Home Medications Medication Instructions Recorded Confirmed aspirin 81 mg tablet,delayed 81 mg PO HS 01/12/19 07/03/22 release (Adult Low Dose Aspirin) fenofibrate nanocrystallized 145 145 mg PO DAILY 01/12/19 07/03/22 mg tablet rivaroxaban 20 mg tablet (Xarelto) 20 mg PO HS 01/12/19 07/03/22 nitroglycerin 0.4 mg sublingual 0.4 mg sublingual Q5-15M PRN Chest 07/02/22 07/03/22 tablet Pain Allergies Allergy/AdvReac Type Severity Reaction Status Date / Time No Known Allergies Allergy Verified 07/03/22 14:08 Review of Systems Review of Systems: CONSTITUTIONAL: Denies fever, chills, or sweats. EYES: Denies visual changes, redness, or discharge. ENT: Positive rhinorrhea, congestion, denies sore throat, or otalgia. CARDIOVASCULAR: Denies chest pain, palpitations, or edema. RESPIRATORY: positive cough denies dyspnea. GASTROINTESTINAL: Denies abdominal pain, nausea, vomiting, or diarrhea. GENITOURINARY: Denies dysuria or hematuria. SKIN: Denies rash or itching. MUSCULOSKELETAL: Denies back pain, joint pain, or myalgia. NEUROLOGIC: Denies headache, numbness, or weakness. PSYCHIATRIC: Denies anxiety or depression. [facility] Past Medical History Medical History Anxiety Atrial fibrillation, chronic Hyperlipidemia LDL goal <100 Hypertension Surgical History Surgical History History of heart artery stent History of hernia repair History of knee replacement Family History Family History Father Acute myocardial infarction Family history of coronary artery disease Mother Carcinoma of colon Other Family history of malignant neoplasm Social History Social History Social History: pt stopped smoking 30 years ago Smoking packs per day: 0.5 Smoking cigarettes per day: 10.0 Years smoked: 10 Smoking pack-years: 5.00 Smoking status: Former smoker Tobacco type: cigarettes Second hand tobacco smoke exposure: No Smoking end date: 03/07/91 Alcohol intake: current Drinks per week: 0 Alcohol use details: 2 DRINKS PER MONTH Substance use: never Substance use type: does not use Lack of Transportation: No Lack of Food: Never True Current Housing: I Have Housing Concerned About Future Housing: No Difficulty Paying Gas/Electric Bills: No Difficulty Paying for Meds: No Currently Unemployed: No Education: Master's Degree or Higher Difficulty w/ Childcare or Family Care: No Living arrangements: with family Occupation/Education: retired Gender identity (if verbalized by the patient): Male Sexual Orientation (if Verbalized by the Patient): Straight or Heterosexual Spiritual care concerns: No Comments At the time of my signature I agree with nursing past medical history, surgical, social, and family history. There is no relevant family history
== END 2022-07-03 14:44 | disposition home or self-care (01) ==
PROVIDERS: Emergency Provider Nurse Practitioner Family; PCP Internal Medicine
DX: J01.90 Acute sinusitis, unspecified (principal); J30.2 Other seasonal allergic rhinitis; I48.20 Chronic atrial fibrillation, unspecified; E78.5 Hyperlipidemia, unspecified; I10 Essential (primary) hypertension; Z79.01 Long term (current) use of anticoagulants; Z79.82 Long term (current) use of aspirin; Z87.891 Personal history of nicotine dependence
CPT/HCPCS: 99213; G0463

== ENCOUNTER 2023-12-22 11:54 | Emergency (ER) | payer MEDICARE, SELFPAY ==
--- NOTE | ~2023-12-22 | XR_ITS ---
Left Knee Technique: AP, lateral, and sunrise views were obtained. Clinical History: Injury Findings: No fracture or dislocation is seen. Bipartite patella noted. There is moderate tricompartme ntal degenerative change. There is chondrocalcinosis of the menisci.. Moderate to large joint effusio n is seen. Impression: Moderate tricompartmental degenerative change. Moderate to large joint effusion. 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 Reviewed, dictated and finalized at location M. Impression: Moderate tricompartmental degenerative change. Moderate to large joint effusion. 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
--- NOTE | ~2023-12-22 | XR_ITS ---
Right elbow Technique: AP, oblique, and lateral views were obtained. Clinical History: Pain Findings: No acute fracture or dislocation is seen. Osseous alignment is anatomic. Joint there are mi nimal degenerative changes of the elbow. There is no displacement of the fat pads, and no evidence of joint effusion. There is probable soft tissue swelling over the olecranon and over the medial aspect of the elbow. Impression: Soft tissue swelling over the olecranon and medial aspect of the elbow. Consider olecranon bursitis a nd/or posttraumatic soft tissue swelling. Minimal degenerative changes of the elbow. Reviewed, dictated and finalized at location . Impression: Soft tissue swelling over the olecranon and medial aspect of the elbow. Conside r olecranon bursitis and/or posttraumatic soft tissue swelling. Minimal degenerative changes of the elbow.
--- NOTE | 2023-12-22 12:24 | ED.LOWEXIN ---
HPI - Extremity Injury (Lower) General Chief Complaint: Extremity Injury, Lower Stated Complaint: injury to lt knee Time Seen by Provider: 12/22/23 12:24 Source: patient, family, RN notes reviewed and old records reviewed Mode of arrival: ambulatory Limitations: no limitations History of Present Illness HPI Narrative: 83 year old male accompanied by spouse presents to express care with complaints of sustaining a fall Tuesday when leaving a sporting event and fell missing 2 steps states went airborne anmd hit his left knee and also right elbow on concrete floor.. Patient is on blood thinners with swelling and bruising to right elbow with pain with movement. Patient has large amount of swelling to his left knee and states pain to his left knee is 10/1-. Patient reports that he can hardly bend his left knee and has been using walker to ambulate and taking Tylenol and tramadol for his pain.Patient reports did not hit his head or have any LOC. MD complaint: knee injury (left) and other (right elbow injury with swelling and ecchymosis) Onset (ago): day(s) (Tuesday evening fall) Injury: Left: knee Type of Injury: blunt Place: school (when leaving event) Severity: severe Severity scale (1-10): 10 Exacerbating factors: weight bearing, movement and palpation Treatments prior to arrival: other (Tylenol and tramadol) Related Data Home Medications Medication Instructions Recorded Confirmed aspirin 81 mg tablet,delayed 81 mg PO HS 01/12/19 12/22/23 release (Adult Low Dose Aspirin) fenofibrate nanocrystallized 145 145 mg PO DAILY 01/12/19 12/22/23 mg tablet metoprolol succinate 50 mg capsule 100 mg PO DAILY 05/12/23 12/22/23 sprinkle, ext. release 24 hr rivaroxaban 20 mg tablet (Xarelto) 20 mg PO HS 05/12/23 12/22/23 Allergies Allergy/AdvReac Type Severity Reaction Status Date / Time No Known Allergies Allergy Verified 12/22/23 12:55 Review of Systems Review of Systems: CONSTITUTIONAL: Denies fever, chills, or sweats. EYES: Denies visual changes, redness, or discharge. ENT: Denies rhinorrhea, congestion, sore throat, or otalgia. CARDIOVASCULAR: Denies chest pain, palpitations, or edema. RESPIRATORY: Denies cough or dyspnea. GASTROINTESTINAL: Denies abdominal pain, nausea, vomiting, or diarrhea. GENITOURINARY: Denies dysuria or hematuria. SKIN: Denies rash or itching. MUSCULOSKELETAL: Denies back pain, pain to left knee from fall barely able to bend left knee and ambulate, also pain and swelling to right elbow with bruising from fall. or myalgia. NEUROLOGIC: Denies headache, numbness, or weakness PSYCHIATRIC: Denies anxiety or depression. All systems reviewed & are unremarkable except as noted in HPI and below [facility] Past Medical History Medical History (Updated 12/24/23 @ 14:07 by Irais Grider NP) AAA (abdominal aortic aneurysm) Anxiety Atrial fibrillation, chronic Hepatic artery dissection Hyperlipidemia LDL goal <100 Hypertension Surgical History Surgical History (Updated 12/24/23 @ 13:49 by Irais Grider NP) History of heart artery stent History of hernia repair History of knee replacement right Family History Family History Father Acute myocardial infarction Family history of coronary artery disease Mother Carcinoma of colon Other Family history of malignant neoplasm Social History Social History Social History: pt stopped smoking 30 years ago Smoking packs per day: 0.5 Smoking cigarettes per day: 10.0 Years smoked: 10 Smoking pack-years: 5.00 Smoking status: Former smoker Tobacco type: cigarettes Second hand tobacco smoke exposure: No Smoking end date: 03/07/91 Alcohol intake: current Drinks per week: 0 Alcohol use details: 2 DRINKS PER MONTH Substance use: never Substance use type: does not use Do You Feel Safe in your Sridevi
[2023-12-22 12:59] VITALS: BP 115/65; PULSE 84; RESP 15; TEMP 36.9; O2SAT 96
== END 2023-12-22 13:56 | disposition home or self-care (01) ==
PROVIDERS: Emergency Provider Registered Nurse; PCP Nurse Practitioner Family
DX: M25.562 Pain in left knee (principal); M25.462 Effusion, left knee; M25.521 Pain in right elbow; R22.31 Localized swelling, mass and lump, right upper limb; I48.20 Chronic atrial fibrillation, unspecified; E78.5 Hyperlipidemia, unspecified; I10 Essential (primary) hypertension; Z95.5 Presence of coronary angioplasty implant and graft; Z96.651 Presence of right artificial knee joint; Z79.82 Long term (current) use of aspirin
CPT/HCPCS: 73080; 73562; 99214; G0463; L1830

== ENCOUNTER 2024-01-04 12:46 | Outpatient (CLI) | payer MEDICARE, SELFPAY ==
--- NOTE | ~2024-01-04 | MR_ITS ---
EXAMINATION: MR knee LT wo con DATE: 01/04/2024 13:25 INDICATION: Left knee pain TECHNIQUE: Magnetic resonance imaging (MRI) of the left knee was performed without intravenous contra st. Sequences included coronal PD-weighted FSE, coronal PD-weighted FS FSE, sagittal T2-weighted FSE , sagittal PD-weighted FS FSE and axial PD weighted fat saturated FSE. COMPARISON: None. FINDINGS: Medial compartment: Complex tear of the body and posterior horn of the medial meniscus. Complex medial meniscal tear with small macerated appearance at the medial meniscal body and with small size and irregular increased s ignal extending to the superior articular surface of the posterior horn of the medial meniscus. There is extensive full/near full-thickness chondral ulceration along the anterior to central weightbearin g medial femoral condyle and anterior two thirds of the medial tibial plateau there is suggestion of early remodeling along the articular surface at the anterior aspect medial tibial plateau with mild u nderlying subarticular edema-like marrow signal change. There is additional mild subarticular edema-l jordan signal change and low signal intensity eventration along the central aspect of the weightbearing medial femoral condyle. Moderate size marginal osteophytes are present. Lateral compartment: Complex lateral meniscal tear extending from the anterior to posterior horn. Articular cartilage is n ormal. Patellofemoral compartment: Additional extensive full/near full-thickness chondral ulceration along the patellar apical ridge and lateral patellar facet as well as gas along a large portion of the lateral trochlea. Less severe par tial thickness chondral ulceration at the trochlear groove and medial trochlea. Ligaments and tendons: Complete tear of the anterior cruciate ligament with prominent thickened and irregular soft tissue at the posterior central aspect of the intercondylar notch with smaller fluid overlying the region of t he lower tibial footplate of the is torn ligament. The medial collateral ligament and fibular collate ral ligament complex are normal. The extensor mechanism is normal. The visualized medial and lateral hamstring tendons as well as the iliotibial band are normal. Fluid: Small left knee joint effusion with prominent synovitis at the suprapatellar pouch. No loose osteocho ndral bodies identified. Small multilobulated ganglion cyst extending inferiorly from the proximal ti biofibular articulation. Osseous/other: There is normal variant tripartite patella with a couple unfused accessory apophyseal centers along t he superolateral margin of the patella proper. There is marrow edema in the accessory apophyseal cent ers and prominent cystlike changes in the patella proper along the patellar synchondrosis.. There is thickened synovitis with mild increased signal without abdomen along the superficial margin of the pa tellar synchondrosis. There is additional prominent cystlike change at the posterolateral aspect of t he medial tibial plateau. No fracture or pathologic marrow replacing process. IMPRESSION: 1. Complete anterior cruciate ligament tear. 2. Complex medial and lateral meniscal tears more advanced at the former with small macerated appeara nce to the medially extruded medial meniscal body. 3. 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 4. Normal variant tripartite patella with synovitis along the synchondrosis and prominent edema-like marrow signal change at both sides of the synchondrosis. 5. Likely reactive small left knee joint effusion with moderate synovitis at the suprapatellar pouch. Reviewed, dictated and finalized at location A. IMPRESSION: 1. Complete anterior cruciate ligament tear. 2. Complex medial and lateral meniscal tears more advanced at the former with s mall macerated appearance to the medially extruded medial meniscal body. 3. 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 4. Normal variant tripartite patella with synovitis along the synchondrosis and prominent edema-like marrow signal change at both sides of the synchondrosis. 5. Likely reactive small left knee joint effusion with moderate synovitis at th e suprapatellar pouch.
== END 2024-01-04 12:47 | disposition home or self-care (01) ==
PROVIDERS: PCP Orthopaedic Surgery; Visit Provider Orthopaedic Surgery
DX: S83.512A Sprain of anterior cruciate ligament of left knee, initial encounter (principal); S83.272A Complex tear of lateral meniscus, current injury, left knee, initial encounter; S83.232A Complex tear of medial meniscus, current injury, left knee, initial encounter; X58.XXXA Exposure to other specified factors, initial encounter; M17.12 Unilateral primary osteoarthritis, left knee
CPT/HCPCS: 73721

== ENCOUNTER 2024-10-02 12:03 | Emergency (ER) | payer MEDICARE, SELFPAY ==
--- NOTE | ~2024-10-02 | XR_ITS ---
XR shoulder RT min 2V 10/02/2024 12:35 INDICATION: Right shoulder pain after fall PROCEDURE: 4 views right shoulder COMPARISON: 07/25/2019 FINDINGS: Fracture, dislocation or subluxation is not identified. There is mild polyarticular osteoar thritis. Osteopenia. The soft tissues appear within normal limits. No foreign bodies are identified. IMPRESSION: 1: NO ACUTE BONE OR JOINT ABNORMALITY IDENTIFIED. Reviewed, dictated and finalized at location B.
--- NOTE | ~2024-10-02 | XR_ITS ---
HISTORY: fall, swelling, pain COMPARISON: Reference is made to a radiograph of the hand performed 01/12/2019 TECHNIQUE: 3 views of the right wrist were performed. FINDINGS: Chronic lytic lesions within the scaphoid, capitate, hamate and lunate, likely subchondral cysts. Interval development of subchondral cyst formation within the base of the second metacarpal, along th e radial surface. Loose bodies redemonstrated within the radiocarpal compartment, demonstrating progression from prior. Periarticular osteopenia persists. No acute fracture is identified. Significant soft tissue swelling. Diffuse bony demineralization. No acute displaced fracture is appreciated. 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 If clinical suspicion persists, cross-sectional imaging (noncontrast enhanced CT examination of the r ight wrist, versus MRI) is suggested for further evaluation. Reviewed, dictated and finalized at location A. 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 If clinical suspicion persists, cross-sectional imaging (noncontrast enhanced C T examination of the right wrist, versus MRI) is suggested for further evaluati on.
--- NOTE | 2024-10-02 12:04 | ED_ITS ---
HPI - Extremity Injury (Upper) General Chief Complaint: Extremity Injury, Upper Stated Complaint: wrist pain/ shoulder pain Time Seen by Provider: 10/02/24 12:03 Source: patient Mode of arrival: ambulatory Limitations: no limitations History of Present Illness HPI narrative: Patient is a 84-year-old male who presents for right arm and shoulder pain. Patient fell Tuesday while watering burgess. Patient fell and landed on the arm. Denies hitting head or losing consciousness. Patient was seen by PCP today and was sent home with this plan Plan: - to for imaging and splinting - Prescribe hydrocodone for severe pain management pt instructed if fractured splinting it should improve pain. - Advise against driving while taking pain medication. - Coordinate with local urgent care or ER to ensure they are equipped to provide x-ray and splinting services. - Follow up as needed based on x-ray results and response to treatment. Patient has swelling of the right wrist and pain with movement and shoulder. Has been taking Tylenol. Patient is on blood thinner for AFib Related Data Home Medications ?Medication ?Instructions ?Recorded ?Confirmed ?Last Taken ?Type aspirin 81 mg tablet,delayed 81 mg PO HS 01/12/19 10/02/24 1 Day Ago History release (Adult Low Dose Aspirin) ~11/30/21 fenofibrate nanocrystallized 145 145 mg PO DAILY 01/12/19 10/02/24 1 Day Ago History mg tablet ~11/30/21 metoprolol succinate 50 mg capsule 100 mg PO DAILY 05/12/23 10/02/24 Unknown History sprinkle, ext. release 24 hr rivaroxaban 20 mg tablet (Xarelto) 20 mg PO HS 05/12/23 10/02/24 Unknown History Allergies Allergy/AdvReac Type Severity Reaction Status Date / Time No Known Allergies Allergy Verified 10/02/24 12:08 Review of Systems Review of Systems: All systems reviewed & are unremarkable except as noted in HPI and below Constitutional: Constitutional: Denies body ache(s), Denies fever(s), Denies headache(s), Denies malaise and Denies weakness Eyes: Eyes: Reports no additional eye complaints and Denies loss of vision ENT: Reports system reviewed and no additional complaints, except as documented, Denies otalgia, Denies headache(s), Denies nasal discharge, Denies sinus pain and Denies sore throat Cardiovascular: Cardiovascular: Reports no additional cardiovascular complaints, Denies chest pain, Denies irregular heart rhythm and Denies dyspnea Respiratory: Respiratory: Reports no additional respiratory complaints and Denies dyspnea Gastrointestinal: Gastrointestinal: Reports no additional gastrointestinal complaints, Denies abdominal pain, Denies melena, Denies hematochezia, Denies diarrhea, Denies nausea and Denies vomiting Musculoskeletal: Musculoskeletal: Reports no additional musculoskeletal complaints, Denies back pain, Denies myalgias, Reports arthralgias and Reports joint swelling Integumentary/Breasts: Skin/Breast: Reports system reviewed and no additional complaints, except as docu, Denies pruritus and Denies rash Neurologic: Reports system reviewed and no additional complaints, except as documented, Denies headache(s), Denies loss of vision and Denies weakness Psychiatric: Psychiatric: Reports no additional psychiatric complaints PMFSH Past Medical History Medical History Hepatic artery dissection AAA (abdominal aortic aneurysm) Hypertension Anxiety Atrial fibrillation, chronic Hyperlipidemia LDL goal <100 Surgical History Surgical History History of hernia repair History of knee replacement right History of heart artery stent Family History Family History Father Acute myocardial infarction Family history of coronary artery disease Mother Carcinoma of colon Other Family history of malignant neoplasm Social History Social History Social History: pt stopped smoking 30 years ago Smoking packs per day: 0.5 Smoking cigarettes per day: 10.0 Years smoked: 10 Smoking pack-years: 5.00 Smoking status: Former smoker Tobacco type: cigarettes Second hand tobacco smoke exposure: No Smoking end date: 03/07/91 Alcohol intake: current Drinks per week: 0 Alcohol use details: 2 DRINKS PER MONTH Substance use: never Substance use type: does not use Do You Feel Safe in your Home?: Yes Lack of Transportation: No Lack of Food: Never True Current Housing: I Have Housing Concerned About Future Housing: No Difficulty Paying Gas/Electric Bills: No Difficulty Paying for Meds: No Currently Unemployed: No Education: Master's Degree or Higher Difficulty w/ Childcare or Family Care: No Living arrangements: with family Occupation/Education: retired Gender identity (if verbalized by the patient): Male Sexual Orientation (if Verbalized by the Patient): Straight or Heterosexual Spiritual care concerns: No Agree to blood products: Yes Comments At time of signature, agree with nursing past medical, surgical, social and family history. There is no relevant family history pertinent to the presenting complaint. Exam Const: General: cooperative, healthy appearing, comfortable, no acute distress and well nourished Nutritional Appearance: well nourished Orientation/consciousness: patient oriented x3 Limitations: no limitations HENMT: Head: normal to inspection, normocephalic and atraumatic Ears: external ears normal Face/Nose/Sinus: Normal external nose present, normal facial exam and face symmetric Face and sinus: normal facial exam and face symmetric Mouth: Yes lip normal Eyes: General: appearance normal, both eyes and all related structures Alignment and Position: alignment normal and position normal Eyelids: eyelids normal Pupils: Equal, round and reactive pupils present EOM: EOMs intact bilaterally Neck: Neck: normal visual inspection and full ROM Chest: Chest palpation & inspection: normal inspection of the chest Resp: Effort & Inspection: normal respiratory effort and able to speak in complete sentences Auscultation: clear to auscultation bilaterally Cardio: Rate: regular rate Rhythm: regular rhythm Heart sounds: S1 normal heart sound present and S2 normal heart sound present GI: Inspection: normal to inspection Skin: General skin exam: normal color and no rashes or lesions noted Neuro: General: patient oriented x3 and moves all extremities Cranial nerves: Yes Equal, round and reactive pupils present Speech: normal speech Gait exam (Neuro): Normal gait present Extrem: General: normal to inspection, full ROM and no edema Right upper extremity: shoulder/upper arm normal to inspection, axillary nerve sensory function normal and abnormal ROM pain with active ROM (all with breaking horizontal plane) in ADduction, in ABduction, in extension and in flexion; no tenderness, no swelling and no ecchymosis, elbow/forearm normal to inspection, normal ROM and distal pulses intact; no tenderness and no swelling, wrist tenderness of the dorsal wrist; not of the anatomic snuffbox, swelling of the dorsal wrist, abnormal ROM pain with active ROM during with extension, normal vascular exam and radial pulse present 4+; no ecchymosis and no deformity and Extremity exam: right hand normal capillary refill, neuromotor exam normal wrist extension normal, thumb opposition normal, thumb IP flexion normal, thumb ADduction normal and fingers 2-5 ABduction normal, tendon exam normal of all digits extensor tendon, flexor digitorum profundus and flexor digitorum superficialis, vascular exam radial pulse present and normal capillary refill, normal ROM of fingers and swelling of the dorsal hand; no ecchymosis Psych: Appearance: grossly normal and well kempt Mental Status: mental status grossly normal Speech and movement: Normal speech and movement present Affect: normal affect Attitude: cooperative Thought process: Normal thought process present Course Course Emergency Course: Patient is aware of diagnosis, understands and agrees to treatment plan. Anticipatory guidance given. Patient agrees to follow-up as directed and is aware of reasons to seek care at the emergency department. Portions of this record may have been created with voice recognition software Level of Care: Express Care Visit Vital Signs Vital signs: Reviewed MDM - Extremity Injury (Upper) MDM Narrative Medical decision making narrative: The R wrist is with obvious swelling when compared to the L wrist. NO surface trauma, open wounds, swelling or obvious deformity. No overlying erythema or warmth. No bony crepitus or focal area of tender to palpate. Limited due to pain flexion/extension, ulnar/radial deviation. Motor/sensory function of ulnar, radial, median nerves intact. radial pulses intact, normal cap refill. The R shoulder is without obvious asymmetry or deformity when comparing to L shoulder. No surface trauma, ecchymosis, crepitus. No bony deformity of the humerus head. No erythema, warmth, swelling to palpate. Nontender to palpate over the clavicle, A to C joint, acromion, scapula, or humeral head. Nontender to palpations of the bicipital groove or soft tissue. Nontender to palpate of the muscles of the sternocleidomastoid, pectoris, biceps/triceps, deltoid, trapezius, rhomboid, latissimus dorsi is, or rotator cuff. pain or limitation with active or passive abduction/abduction, internal, external rotation, flexion/extension. No axillary tenderness or lymphadenopathy. Normal sensation over the deltoid and ability to flex the arm at the elbow indicated Intacs axillary nerve function. Distal motor is a normal vascular status is intact. Pt well hydrated appearing, in no respiratory distress, hemodynamically stable. The patient is stable at time of discharge the clinical impression was discussed and the patient was given the opportunity to ask questions, which were addressed as completely as possible given the information available at present. Anticipatory guidance and return to care precautions were discussed and the importance of primary care follow-up was stressed and encouraged. The patient voiced understanding of the plan, indications to return, and the need for follow-up. Patient is appropriate for outpatient treatment and follow-up. Patient had pain medication sent in by PCP. Will refer patient back to his ortho doctor for fur ther workup if symptoms are not improving. Jt Wrap applied to right wrist Differential Diagnosis Differential diagnosis: Likely sprain and strain of wrist, fracture of wrist, dislocation of shoulder and other (Shoulder fracture, rotator cuff injury) Medical Records Attestation: I reviewed the patient's medical records. Imaging Data Radiologist's impression: XR shoulder RT min 2V 10/02/2024 12:35 INDICATION: Right shoulder pain after fall PROCEDURE: 4 views right shoulder COMPARISON: 07/25/2019 FINDINGS: Fracture, dislocation or subluxation is not identified. There is mild polyarticular osteoarthritis. Osteopenia. The soft tissues appear within normal limits. No foreign bodies are identified. IMPRESSION: 1: NO ACUTE BONE OR JOINT ABNORMALITY IDENTIFIED. HISTORY: fall, swelling, pain COMPARISON: Reference is made to a radiograph of the hand performed 01/12/2019 TECHNIQUE: 3 views of the right wrist were performed. FINDINGS: Chronic lytic lesions within the scaphoid, capitate, hamate and lunate, likely s ubchondral cysts. Interval development of subchondral cyst formation within the base of the second metacarpal, along the radial surface. Loose bodies redemonstrated within the radiocarpal compartment, demonstrating progression from prior. Periarticular osteopenia persists. No acute fracture is identified. Significant soft tissue swelling. Diffuse bony demineralization. No acute displaced fracture is appreciated. 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 If clinical suspicion persists, cross-sectional imaging (noncontrast enhanced CT examination of the right wrist, versus MRI) is suggested for further evaluation. Discharge Plan Discharge Clinical Impression: Fall, Acute pain of right shoulder, Right wrist sprain Patient Disposition: Home Condition: Stable Instructions: Wrist Sprain (ED), Shoulder Pain (ED) Additional Instructions: Xray showed no fracture. Minimize activities that aggravate the condition The RICE protocol. Follow the RICE protocol as soon as possible after your injury:. Ice should be immediately applied to keep the swelling down. It can be used for 20 to 30 minutes, three or four times daily. Do not apply ice directly to your skin. Compression dressings, bandages or jt-wraps will immobilize and support your injured wrist. Elevate your Wrist above the level of your heart as often as possible during the first 48 hours. Medication: Nonsteroidal anti-inflammatory drugs (NSAIDs) such as ibuprofen and naproxen can help control pain and swelling. Because they improve function by both reducing swelling and controlling pain, they are a better option for mild sprains than narcotic pain medicines. Please schedule a follow-up visit with your personal physician for further evaluation and treatment within 1week OR If your symptoms persist, change or worsen significantly before you can contact your personal physician then please, without delay, go to the emergency department for further evaluation. Your blood pressure was elevated above 120/80 today at Urgent Care. This puts you above the threshold for follow up visit with a primary care provider. High blood pressure does not usually cause any symptoms, however it may lead to kidney failure, stroke, heart disease just to name a few if untreated . Many people are anxious when seeing a provider or nurse. As a result, you are not diagnosed with hypertension at this time unless your blood pressure is persistently high at two office visits at least one week apart. Some things that can help lower blood pressure are lifestyle modifications, such as light exercise, decreased salt in diet, and weight loss. It is important to follow up with a PCP about this within 1 week. Patient Language: Kosovan Prescriptions: No Action aspirin [Adult Low Dose Aspirin] 81 mg Tablet,Delayed Release (Dr/Ec) 81 mg PO HS fenofibrate nanocrystallized 145 mg Tablet 145 mg PO DAILY Xarelto 20 mg tablet 20 mg PO HS Mucinex DM 30-600 mg tablet extended release 12 hr See Rx Instructions PO Q12H PRN (Reason: cough) Qty: 20 0RF Rx Instructions: 1-2 tablest orally every 12 hours PRN; fluticasone propionate [Flonase Allergy Relief] 50 mcg/actuation spray,suspension 2 spray intranasal DAILY Qty: 16 0RF Rx Instructions: administer into each nostril metoprolol succinate 50 mg capsule,sprinkle,ER 24hr 100 mg PO DAILY nitroglycerin 0.4 mg tablet, sublingual 0.4 mg sublingual Q5M PRN (Reason: chest pain) Qty: 25 2RF Rx Instructions: do not exceed 3 doses per episode esomeprazole magnesium 40 mg capsule,delayed release(DR/EC) 40 mg PO DAILY PRN (Reason: acid reflux) Qty: 90 1RF losartan 100 mg tablet See Rx Instructions .ROUTE .COMPLEX Qty: 90 0RF Dose Instruction: Take 1 tablet by mouth once daily Rx Instructions: Take 1 tablet by mouth once daily ezetimibe 10 mg tablet See Rx Instructions .ROUTE .COMPLEX Qty: 90 1RF Dose Instruction: TAKE 1 TABLET BY MOUTH ONCE DAILY AT BEDTIME Rx Instructions: TAKE 1 TABLET BY MOUTH ONCE DAILY AT BEDTIME Follow-up/Referrals: Dedrick Peralta MD [Physician] - 3 Days (HISTORY: fall, swelling, pain COMPARISON: Reference is made to a radiograph of the hand performed 01/12/2019 TECHNIQUE: 3 views of the right wrist were performed. FINDINGS: Chronic lytic lesions within the scaphoid, capitate, hamate and lunate, likely subchondral cysts. Interval development of subchondral cyst formation within the base of the second metacarpal, along the radial surface. Loose bodies redemonstrated within the radiocarpal compartment, demonstrating progression from prior. Periarticular osteopenia persists. No acute fracture is identified. Significant soft tissue swelling. Diffuse bony demineralization. No acute displaced fracture is appreciated. 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 If clinical suspicion persists, cross-sectional imaging (noncontrast enhanced CT examination of the right wrist, versus MRI) is suggested for further evaluation.) Sydni Dang, BOTTOM FINISHER [Primary Care Provider] - 3 Days Time of Disposition: 13:05
--- OUTSIDE RECORDS SUMMARY | 2024-10-02 12:08 | XMS_ITS | Referral Summary ---
Author Organization [facility] [place] [address] Address [address] [place] [address] Care Team Providers Care Grill Attendant Name Role Phone Ye Martin MD Unavailable [phone] Kevin Finch MD Primary Care Provider [phone] Edi Patel MD Unavailable [phone] Encounters Date Type Department Care Team Description 08/01/2024 2:45 PM CDT Office Visit [facility] Gastroenterology at [facility] [address], [place] [address] Roberto Godinez MD Hepatic artery dissection (Primary Dx); IPMN (intraductal papillary mucinous neoplasm); Cardiomyopathy, unspecified type (HCC); Chronic anticoagulation; Chronic atrial fibrillation (HCC) 07/11/2024 Results Follow-Up [facility] Cardiology [address] [place] [address] Ye Martin MD CTA Chest Abdomen Pelvis 07/11/2024 8:54 AM CDT - 07/11/2024 11:59 PM CDT Hospital Encounter [facility] - Imaging [address] [place] [address] Dilated aortic root; Aneurysm of ascending aorta without rupture; Hepatic artery dissection Discharge Disposition: Discharge to home or self care 07/06/2024 Telephone [facility] Cardiology [address] [place] [address] Ye Martin MD 07/05/2024 1:30 PM CDT Office Visit [facility] Cardiology [address] [place] [address] Ye Martin MD Essential hypertension (Primary Dx); Aneurysm of ascending aorta without rupture; Dilated aortic root; Hepatic artery dissection; Chronic atrial fibrillation (HCC); Cardiomyopathy, unspecified type (HCC) from Last 3 Months Allergies No known active allergies Medications aspirin 81 mg chewable tablet Take 1 tablet (81 mg total) by mouth daily before dinner Around 5:00pm Active losartan (COZAAR) 100 mg tablet Take 1 tablet (100 mg total) by mouth daily Active ezetimibe (ZETIA) 10 mg tablet Take 1 tablet (10 mg total) by mouth daily before dinner Around 5:00pm Active traMADoL (ULTRAM) 50 mg tablet Take 1 tablet (50 mg total) by mouth every 6 (six) hours as needed for pain 11/09/19 24 Active fenofibrate nanocrystallized (TRICOR) 145 mg tablet Take 1 tablet by mouth once daily 90 tablet 2 03/15/19 25 Active rivaroxaban (Xarelto) 20 mg tablet Take 1 tablet by mouth once daily 90 tablet 3 04/30/[address] (NexIUM) 40 mg capsule Take 1 capsule (40 mg total) by mouth daily before breakfast 04/24/19 25 Active acetaminophen (TYLENOL) 500 mg tablet Take 1 tablet (500 mg total) by mouth every 6 (six) hours as needed for pain Active metoprolol XL (TOPROL-XL) 100 mg 24 hr tablet TAKE 1 TABLET BY MOUTH ONCE DAILY BEFORE DINNER AROUND 5PM 90 tablet 3 08/14/19 25 Active Active Problems Problem Noted Date Diagnosed Date IPMN (intraductal papillary mucinous neoplasm) 0 08/01/2024 Pancreatic lesion 07/02/2023 Assessment & Plan (07/02/2023 8:00 PM CDT): 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 This is a benign- appearing lesion and is likely a side-branch intra papillary mucinous neoplasm. It was recommended to follow-up this lesion in 1 year. 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 This will likely also get views of the pancreatic cyst over the next year. I advised him on limitation of alcohol use. He will see me again in 1 year and we will see the previous CT scans that he has obtained. If it was appropriate to get an MRCP next year we will order the time of his visit. Otherwise this lesion is incidental and does not have any concerning features. 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 If there were rupture this would include the classic Quincke's triad of right upper quadrant colic pain, jaundice, and hematobilia, a medical emergency. Fatty liver 04/29/2023 Class 1 obesity due to exces s calories with serious comorbidity and body mass index (BMI) of 33.0 to 33.9 in adult 04/29/2023 Pain of left hip joint 01/09/2023 Arthralgia of left knee 05/20/2022 History of total right knee replacement 05/21/19 Osteoarthritis of left knee 05/20/2022 COVID-19 03/21/2021 Chronic fatigue 02/23/2017 Coronary artery disease of n ative artery of [place] heart with stable angina pectoris 09/27/2016 Assessment & Plan (12/25/2020 10:56 AM CDT): No symptoms of myocardial ischemia. Continue aspirin and metoprolol succinate 50 mg daily. Assessment & Plan (12/27/2019 11:10 AM CDT): Asymptomatic. Normal myocardial perfusion study in 2019. Continue aspirin and metoprolol. Assessment & Plan (12/18/2018 10:46 AM CDT): No chest discomfort. I am somewhat concerned about his fatigue. Will obtain a pharmacologic stress test (on beta-connie and with knee problems). Continue aspirin. Assessment & Plan (12/12/2017 10:35 AM CDT): No symptoms of myocardial ischemia. He is on low-dose aspirin. S/P coronary artery stent placement 09/27/2016 Dyslipidemia 09/27/2016 Assessment & Plan (12/25/2020 10:58 AM CDT): He is intolerant of statin therapy. Continue Zetia. Will review lipids from PCP. Assessment & Plan (12/27/2019 11:11 AM CDT): He is statin intolerant. Despite not being on a statin, his LDL is 79. Continue Zetia and fenofibrate. Assessment & Plan (12/18/2018 10:46 AM CDT): Lipids look good despite the fact that he is not on a statin because of intolerance. Assessment & Plan (12/12/2017 10:36 AM CDT): Intolerant of statin therapy. He is on Zetia and try core. LDL is acceptable without statin therapy. Essential hypertension 09/27/2016 Assessment & Plan (12/25/2020 10:57 AM CDT): Blood pressure is well controlled on his regimen of losartan 100 mg daily and metoprolol 50 mg daily, which he should continue. Assessment & Plan (12/27/2019 11:11 AM CDT): Blood pressure is adequately controlled on current regimen. No change was made. Assessment & Plan (12/18/2018 10:46 AM CDT): Blood pressure is adequately controlled on current regimen. No change was made. Assessment & Plan (12/12/2017 10:36 AM CDT): Blood pressure is well controlled. He is not on any diuretic. I do need to see his recent blood chemistries. Chronic atrial fibrillation 09/27/2016 Assessment & Plan (12/25/2020 10:58 AM CDT): Heart rate is well controlled. Continue metoprolol succinate and Xarelto. For an upcoming dental extraction he can discontinue Xarelto three days prior (dentist has had five days but that is more than necessary) Assessment & Plan (12/27/2019 11:11 AM CDT): Rate is controlled and he is anticoagulated. Assessment & Plan (12/18/2018 10:46 AM CDT): Rate is controlled and he is anticoagulated. Assessment & Plan (12/12/2017 10:36 AM CDT): Atrial fibrillation is well tolerated. He is chronically anticoagulated with Xarelto. If there is any significant change in his renal function, this dosage may need to be modified. I asked him to get those labs sent to me. Chronic anticoagulation 2016 Overview (06/10/2016): Chronic anticoagulation Statin intolerance 2016 Overview (06/10/2016): Statin intolerance Immunizations Immunization Administration Dates Next Due Influenza, Quadrivalent, Hig h Dose, Preservative Free, Intrr 11/23/2019 Influenza, Quadrivalent, Spl it, Preservative Free, Intramuscular 12/09/2012 Influenza, Trivalent, Adjuva nted, Intramuscular 12/18/2018 Influenza, Trivalent, High D ose, Split, Preservative Free, Intramuscular 12/14/2017,12/22/2016,12/25/2014 Influenza, Trivalent, IM (MDV) 12/17/2013 Pneumococcal Polysaccharide PPV23 03/07/2009 TD Preservative Free 01/08/2004,03/07/1993 Tdap 03/27/2013 ZOSTER Recombinant 12/14/2017,09/12/2017 Social History Tobacco Use Types Packs/Day Years Used Date Smoking Tobacco: Former Smokeless Tobacco: Never Tobacco Cessation:Counseling Given: Not Answered Alcohol Use Standard Drinks/Week Comments Yes 0 (1 standard drink = 0.6 oz pur e alcohol) Personal Safety Answer Date Recorded Have you ever been in or are you currently in a harmful physical or emotional relationship or is someone making you feel afraid or unsafe? 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 Gender Identity Not on file Sexual Orientation Not on file Last Filed Vital Signs Vital Sign Reading Time Taken Comments Blood Pressure 141/92 08/01/2024 2:34 PM CDT Pulse 68 08/01/2024 2:34 PM CDT Temperature 36.8 C (98.2 F) 05/01/2023 7:50 AM AMPOULE SEALER Respiratory Rate 20 05/01/2023 7:50 AM AMPOULE SEALER Oxygen Saturation 98% 07/27/2023 12:05 PM CDT Inhaled Oxygen Concentration - - Weight 121.1 kg (267 lb) 08/01/2024 2:34 PM CDT Height 190.5 cm (6' 3) 08/01/2024 2:34 PM CDT Body Mass Index 33.37 08/01/2024 2:34 PM CDT Plan of Treatment Not on file Procedures Procedure Name Priority Date/Time Associated Diagnosis Comments HEPATIC FUNCTION PANEL Routine 08/23/2024 8:35 AM CDT 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) CTA CHEST ABDOMEN PELVIS Schedule Routine, Read Routine (OP Routine) 07/11/2024 10:08 AM CDT Dilated aortic root 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 POCT CREATININE FOR CONTRAST EVALUATION Routine 07/11/2024 9:03 AM CDT from Last 3 Months Results * (ABNORMAL) Hepatic function panel (08/23/2024 8:35 AM CDT) Protein, Total 6.7 6.4 - 8.4 g/dL [facility] Albumin 4.5 3.6 - 5.1 g/dL [facility] Globulin 2.2 2.2 - 4.0 g/dL (calc) [facility] Alb/glob ratio 2.0 0.9 - 2.3 (calc) [facility] Bilirubin, total 0.6 0.2 - 1.2 mg/dL [facility] Bilirubin, direct 0.1 < OR = 0.2 mg/dL [facility] Bilirubin, indirect 0.5 0.2 - 1.2 mg/dL (calc) [facility] Alk phos 38 35 - 144 U/L [facility] AST 41(H) 10 - 35 U/L [facility] ALT (SGPT) 22 9 - 46 U/L [facility] Blood 08/23/2024 8:35 AM CDT 08/23/2024 8:35 AM CDT us Roberto Godinez MD LAB BLOOD ORDERABLES Final Result [facility] [address] [place] [address] * CTA Chest Abdomen Pelvis (07/11/2024 10:08 AM CDT) Anatomical Region Laterality Modality Body N/A Computed Tomogra phy 07/11/2024 1:09 PM CDT Impressions 07/11/2024 1:09 PM CDT 1. No significant change in dilatation of the ascending aorta measuring up to 4.7 cm. 2. Stable to slightly decreased size of left atrial appendage thrombus. 3. 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 Electronically signed by: Arthur Morris M.D. Narrative 07/11/2024 1:09 PM CDT EXAMINATION: CTA CHEST ABDOMEN PELVIS Technique computed tomographic angiography of the chest, abdomen, and pelvis was performed prior to and after the administration of 95 mL Optiray 350 intravenous contrast. The data set was transferred to a dedicated workstation and 3-D reconstructions were created and used in interpretation. COMPARISON: 12/02/2023 CT abdomen and pelvis, 06/03/2023 CTA HISTORY: Aortic aneurysm FINDINGS: * Sinuses of Valsalva: 43 mm x 42 mm x 37 mm [id number], previously 43 x 40 x 36 mm * Sinotubular junction: 39 mm x 39 mm, previously 38 x 38 mm * Maximum ascending aorta: 47 mm x 47 mm, unchanged when remeasured similarly * Mid-descending thoracic aorta: 36 mm x 36 mm Scattered subcentimeter thyroid nodules. No thoracic lymphadenopathy. The heart is mildly enlarged, unchanged. Filling defect within the left atrial appendage appears similar to slightly decreased in extent compared to 06/03/2023 CT. Severe three-vessel coronary calcification. Scattered atelectasis throughout the lungs. No suspicious pulmonary nodules. No consolidation. No pleural effusion or pneumothorax. No focal hepatic lesion. Normal gallbladder, no biliary dilatation. The spleen, adrenal glands, pancreas are normal with the exception of a unchanged 13 mm cystic lesion along the anterior aspect of the proximal pancreatic tail, which may represent a side branch intraductal papillary mucinous neoplasm. No main pancreatic ductal dilatation. Excreted contrast seen within the renal collecting systems. Abdominal aorta is normal caliber with moderate atherosclerotic changes, no significant stenoses. There Is a partially thrombosed aneurysm along the proximal common hepatic artery which measures 19 mm maximum diameter. The common hepatic artery is at least moderately stenosed as it courses along the aneurysm. No abdominopelvic lymphadenopathy. No ascites or pneumoperitoneum. The rectum is normal. There is mild colonic diverticulosis. Otherwise the colon is normal. Small bowel is nondilated with no evidence of obstruction. Stomach and duodenum are normal. Urinary bladder contains excreted contrast. The prostate is mildly moderately enlarged. Bone windows show no suspicious lytic or blastic osseous lesions. Degenerative changes are seen throughout the lumbar spine. Procedure Note Arthur Morris MD - 07/11/2024 EXAMINATION: CTA CHEST ABDOMEN PELVIS Technique computed tomographic angiography of the chest, abdomen, and pelvis was performed prior to and after the administration of 95 mL Optiray 350 intravenous contrast. The data set was transferred to a dedicated workstation and 3-D reconstructions were created and used in interpretation. COMPARISON: 12/02/2023 CT abdomen and pelvis, 06/03/2023 CTA HISTORY: Aortic aneurysm FINDINGS: * Sinuses of Valsalva: 43 mm x 42 mm x 37 mm [id number]-gzuadinjll, previously 43 x 40 x 36 mm * Sinotubular junction: 39 mm x 39 mm, previously 38 x 38 mm * Maximum ascending aorta: 47 mm x 47 mm, unchanged when remeasured similarly * Mid-descending thoracic aorta: 36 mm x 36 mm Scattered subcentimeter thyroid nodules. No thoracic lymphadenopathy. The heart is mildly enlarged, unchanged. Filling defect within the left atrial appendage appears similar to slightly decreased in extent compared to 06/03/2023 CT. Severe three-vessel coronary calcification. Scattered atelectasis throughout the lungs. No suspicious pulmonary nodules. No consolidation. No pleural effusion or pneumothorax. No focal hepatic lesion. Normal gallbladder, no biliary dilatation. The spleen, adrenal glands, pancreas are normal with the exception of a unchanged 13 mm cystic lesion along the anterior aspect of the proximal pancreatic tail, which may represent a side branch intraductal papillary mucinous neoplasm. No main pancreatic ductal dilatation. Excreted contrast seen within the renal collecting systems. Abdominal aorta is normal caliber with moderate atherosclerotic changes, no significant stenoses. There Is a partially thrombosed aneurysm along the proximal common hepatic artery which measures 19 mm maximum diameter. The common hepatic artery is at least moderately stenosed as it courses along the aneurysm. No abdominopelvic lymphadenopathy. No ascites or pneumoperitoneum. The rectum is normal. There is mild colonic diverticulosis. Otherwise the colon is normal. Small bowel is nondilated with no evidence of obstruction. Stomach and duodenum are normal. Urinary bladder contains excreted contrast. The prostate is mildly moderately enlarged. Bone windows show no suspicious lytic or blastic osseous lesions. Degenerative changes are seen throughout the lumbar spine. IMPRESSION: 1. No significant change in dilatation of the ascending aorta measuring up to 4.7 cm. 2. Stable to slightly decreased size of left atrial appendage thrombus. 3. 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 Electronically signed by: Arthur Morris M.D. Ye Martin MD IM CT PROCEDURES Final Re sult * POCT creatinine for contrast evaluation (07/11/2024 9:03 AM CDT) Creatinine, POC 1.4 0.6 - 1.5 mg/dL Comment:egfr 52 Blood 07/11/2024 9:03 AM CDT Ye Martin MD POINT OF CARE TEST ORDERAB LES Final Result from Last 3 Months Insurance T MEDICARE [employer]ET[employer] MEDICARE Advance Directives For more information, please contact: [phone] * Full Code (Latest Code Status on File) Date Activated Date Inactivated Comments 04/29/2023 5:43 PM 05/01/2023 3:18 PM Care Teams Grill Attendant Relationship Specialty Start Date End Date Kevin Finch MD PCP - General Family Practice 01/03/23 Ye Martin MD Consulting Physician Cardiology 12/29/21 Edi Patel MD Surgeon Vascular Surgery 12/26/23
--- OUTSIDE RECORDS SUMMARY | 2024-10-02 12:08 | XMS_ITS | Clinical Summary ---
Author Organization [facility] [place] [facility] [place] [address] Address [address] [place] [address] Care Team Providers Care Waxing Machine Operator Name Role Phone Ye Martin MD Unavailable [phone] Kevin Finch MD Primary Care Provider [phone] Edi Patel MD Unavailable [phone] Allergies No known active allergies Medications aspirin [...] artery disease of n ative artery of [place] heart with stable angina pectoris 09/27/2016 Assessment [...] Statin intolerance 2016 Overview (06/10/2016): Statin intolerance Encounters Date Type Department Care Team Description 08/01/2024 2:45 PM CDT Office Visit [facility] Gastroenterology at [address] [address] Roberto Godinez MD Hepatic artery dissection (Primary Dx); IPMN (intraductal papillary mucinous neoplasm); Cardiomyopathy, unspecified type (HCC); Chronic anticoagulation; Chronic atrial fibrillation (HCC) 07/11/2024 8:54 AM CDT - 07/11/2024 11:59 PM CDT Hospital Encounter - Imaging [address] [place] [address] Dilated aortic root; Aneurysm of ascending aorta without rupture; Hepatic artery dissection Discharge Disposition: Discharge to home or self care 07/11/2024 Results Follow-Up [facility] Cardiology [address] [address] Ye Martin MD CTA Chest Abdomen Pelvis 07/06/2024 Telephone [facility] Cardiology [address] [place] [address] [address] [address] Ye Martin MD 07/05/2024 1:30 PM CDT Office Visit [facility] Cardiology [address] [place] [address] Ye Martin MD Essential hypertension (Primary Dx); Aneurysm of ascending aorta without rupture; Dilated aortic root; Hepatic artery dissection; Chronic atrial fibrillation (HCC); Cardiomyopathy, unspecified type (HCC) from Last 3 Months Immunizations Immunization Administration Dates Next Due Influenza, Quadrivalent, Hig h Dose, Preservative Free, Intrr 11/23/2019 Influenza, Quadrivalent, Spl it, Preservative Free, Intramuscular 12/09/2012 Influenza, Trivalent, Adjuva nted, Intramuscular 12/18/2018 Influenza, Trivalent, High D ose, Split, Preservative Free, Intramuscular 12/14/2017,12/22/2016,12/25/2014 Influenza, Trivalent, IM (MDV) 12/17/2013 Pneumococcal Polysaccharide PPV23 03/07/2009 TD Preservative Free 01/08/2004,03/07/1993 Tdap 03/27/2013 ZOSTER Recombinant 12/14/2017,09/12/2017 Surgical History Surgery Date Site/Laterality Comments KNEE SURGERY Right knee surgery CAROTID STENT COLONOSCOPY 03/07/2021 - 03/06/2022 Dr. Pineda per pt. No report available. 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 Essential hypertension 09/27/2016 Dyslipidemia 09/27/2016 Dilated aortic root 04/29/2023 Coronary artery disease of n ative artery of [place] heart with stable angina pectoris 09/27/2016 Chronic atrial fibrillation (HCC) 09/27/2016 Cardiomyopathy (HCC) 05/02/2023 Aneurysm of ascending aorta without rupture 04/08 Abnormality of left atrial appendage 04/29/2023 Chronic anticoagulation 2016 Chronic anticoagulation Class 1 obesity due to exces s calories with serious comorbidity and body mass index (BMI) of 33.0 to 33.9 in adult 04/29/2023 Fatty liver 04/29/2023 Pain of left hip joint 01/09/2023 Osteoarthritis of left knee 05/20/2022 History of total right knee replacement 05/21/19 Osteoarthritis 05/13/2023 Arthralgia of left knee 05/20/2022 Acquired trigger finger 05/13/2023 Chronic fatigue 02/23/2017 Atypical chest pain 04/29/2023 Family History Medical History Relation Name Comments Heart attack Father 2 Myocardial Infa rction; Relation Name Status Comments Father 1 Alive Father 2 Social History Tobacco Use Types Packs/Day Years [...] on file 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 Gender Identity Not on file Sexual Orientation Not on file Obstetrics History Last Filed Vital Signs Vital Sign Reading Time Taken Comments Blood Pressure 141/92 08/01/2024 2:34 PM CDT Pulse 68 08/01/2024 2:34 PM CDT Temperature 36.8 C (98.2 F) 05/01/2023 7:50 AM UNEMPLOYMENT EXAMINER Respiratory Rate 20 05/01/2023 7:50 AM UNEMPLOYMENT EXAMINER Oxygen Saturation 98% 07/27/2023 12:05 PM CDT Inhaled Oxygen Concentration - - Weight 121.1 kg (267 lb) 08/01/2024 2:34 PM CDT Height 190.5 cm (6' 3) 08/01/2024 2:34 PM CDT Body Mass Index 33.37 08/01/2024 2:34 PM CDT Plan of Treatment Health Maintenance Due Date Last Done Comments Depression Screening 1941 Hepatitis B Screening 1959 Well Visit 65+ 2006 Pneumococcal vaccine 65+ (2 of 2 - PCV) 03/07/2010 03/07/2009 DTaP/Tdap/Td Vaccine (2 - Td or Tdap) 03/27/2023 03/27/2013, 01/08/2004, 03/07/1993 Fall Risk Assessment 05/01/2024 05/01/2023 Influenza Vaccine (#1) 2024 , 12/18/2018, 12/14/2017, Additional history exists Zoster Vaccine Completed 12/14/2017, 09/12/2017 Abdominal Aortic Aneurysm (A AA) Screen Completed 07/11/2024, 12/02/2023, 12/02/2023, Additional history exists Procedures Procedure Name Priority Date/Time Associated Diagnosis [...] Godinez MD LAB BLOOD ORDERABLES Final Result [facility] [address] [place] [address] * CTA Chest Abdomen Pelvis (07/11/2024 10:08 [...] mm x 42 mm x 37 mm yfgh-[id number]-tfhsvtypyw, previously 43 x 40 x 36 mm [...] mm x 42 mm x 37 mm bimv-ir-rdyknwjthi, previously 43 x 40 x 36 mm [...] by: Arthur Morris M.D. Ye Martin MD [facility] [place] PROCEDURES Final Re sult * POCT creatinine for contrast evaluation (07/11/2024 9:03 AM CDT) Creatinine, POC 1.4 0.6 - 1.5 mg/dL Comment:egfr 52 Blood 07/11/2024 9:03 AM CDT Ye Martin MD POINT OF CARE TEST ORDERAB LES Final Result from Last 3 Months Insurance T MEDICARE AETNA MEDICARE Advance Directives For more information, please contact: [phone] * Full Code (Latest Code Status on File) Date Activated Date Inactivated Comments 04/29/2023 5:43 PM 05/01/2023 3:18 PM Care Teams Waxing Machine Operator Relationship Specialty Start Date End Date Kevin Finch MD PCP - General Family Practice 01/03/23 Ye Martin MD Consulting Physician Cardiology 12/29/21 Edi Patel MD Surgeon Vascular Surgery 12/26/23
--- OUTSIDE RECORDS SUMMARY | 2024-10-02 12:08 | XMS_ITS | Encounter Summary ---
Author Organization [facility] Address [address] [address] Care Team Providers Care Title One Teacher Name Role Phone Kevin Maria MD Primary Care Provider [phone] Encounter Details Date Type Department Care Team (Late st Contact Info) Description 09/08/2017 Lab Requisition [facility] Care DermPath Lab [address] [facility] [facility] [address] [place] [address] Saúl [place] [address] [address] [place] [address] Social History Tobacco Use Types Packs/Day Years Used Date Smoking Tobacco: Never Assessed Sex and Gender Information Value Date Recorded Sex Assigned at Not on file 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 Gender Identity Not on file Sexual Orientation Not on file documented as of this encounter Plan of Treatment Not on file documented as of this encounter Procedures Procedure Name Priority Date/Time Associated Diagnosis Comments DERMATOPATHOLOGY Routine 09/06/2017 12:0 0 AM CDT documented in this encounter Results * DERMATOPATHOLOGY (09/06/2017 12:00 AM CDT) Case Report Dermatopathology Report Case: [id number] Authorizing Provider: Saúl Khan MD Collected: 09/06/2017 12:00 AM Pathologist: Ashlie Bernstein MD Received: 09/08/2017 12:23 PM Specimen: Skin, posterior right upper arm near shoulder 8 2:01 PM CDT DERMATOPATHOLOGY LABORATORY Final Diagnosis Specimen A. SKIN, posterior right upper arm near shoulder: SOLAR LENTIGO (L81.4) 8 2:01 PM CDT DERMATOPATHOLOGY LABORATORY at 1401 T Clinical History R/O lentigo vs SK. 2:01 PM T DERMATOPATHOLOGY LABORATORY Gross Description Specimen A: Received is one formalin filled container labeled with the patient's name and designated posterior right upper arm near shoulder. The specimen consists of a shave biopsy (4 pieces) measuring [id number], 3d6n2ai, 5h7s7rc, & 5b0a4hb. Jar 0. 2:01 PM CDT DERMATOPATHOLOGY LABORATORY Microscopic Description Specimen A. 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 There is a slight increase in epidermal thickness with lentiginous buds of hyperpigmented keratinocytes. The number of melanocytes is only mildly increased. In the dermis, there is basophilic degeneration of elastic fibers. 2:01 PM T DERMATOPATHOLOGY LABORATORY Disclaimer An external and internal positive and negative controls are appropriate for the histochemical, immunohistochemical and immunofluorescence stain(s) in this case (if any), except where stated explicitly. The performance characteristics of the stain(s) cited in this report were developed and its performance characteristic determined by the Dermatopathology Laboratory at [facility]. These tests need not be, and therefore are not, approved by the [place] Food and Drug Administration. The tests are used for clinical purposes. Billing Codes Specimen Charges Stain Charges 49435 1 2:01 PM CDT DERMATOPATHOLOGY LABORATORY Embedded Images 2:01 PM T DERMATOPATHOLOGY LABORATORY Pathology/Cytolog y TISSUE SPECIMEN FROM SKIN / Unknown 09/06/2017 09/08/2017 12:23 PM CDT us Saúl Khan MD LAB - PATHOLOGY/CYTOLOGY ORD ERABLES Final Result DERMATOPATHOLOGY LABORATORY [facility] - Department of Dermatology [address] [facility] [address] [place] [address], [facility] [phone] documented in this encounter Visit Diagnoses Not on filedocumented in this encounter Care Teams Title One Teacher Relationship Specialty Start Date End Date Kevin Maria MD [address] [place] [address] PCP - General 09/08/17 documented as of this encounter
--- OUTSIDE RECORDS SUMMARY | 2024-10-02 12:08 | XMS_ITS | Clinical Summary ---
Author Organization [facility] [employer] Address [address] [place] [address] Care Team Providers Care Manager Configuration Name Role Phone Kevin Maria MD Primary Care Provider Source Comments [facility],non-owned Affiliates and Associated Physician Practices is amultiple site organization consisting of ambulatory clinics and hospital sitesin [place], [place], [place]. This disclosure is being madepursuant to the Care Everywhere program and may not contain all information available regarding this patient. 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 Gender Identity Not on file Sexual Orientation Not on file Plan of Treatment Health Maintenance Due Date Last Done Comments DTAP/TDAP/TD VACCINES (1 - Tdap) 1960 PNEUMOCOCCAL VACCINE 50+ (1 of 1 - PCV) 1991 ZOSTER VACCINE (1 of 2) 1991 Respiratory Syncytial Virus (RSV) Vaccine Pt: or over 60 yrs (1 - 1-dose 75+ series) 2016 COVID-19 VACCINE ( - 2023-2 5 season) 2023 DEPRESSION SCREENING 03/07/2024 INFLUENZA VACCINE (#1) 2024 HEPATITIS B VACCINE Aged Out No longe r eligible based on patient's age to complete this topic HIB VACCINE Aged Out No longer eligi ble based on patient's age to complete this topic HPV VACCINE Aged Out No longer eligi ble based on patient's age to complete this topic MENINGOCOCCAL (Group B) VACC INE SHARED DECISION-MAKING Aged Out No longer eligibl e based on patient's age to complete this topic MENINGOCOCCAL GROUPS A/C/Y/W VACCINE Aged Out No longer eligible b ased on patient's age to complete this topic Insurance [facility] MANAGED MEDICARE ADV Care Teams Manager Configuration Relationship Specialty Start Date End Date Kevin Maria MD [address] [place] [address] PCP - General 09/08/17
--- OUTSIDE RECORDS SUMMARY | 2024-10-02 12:08 | XMS_ITS | Encounter Summary ---
Author Organization [facility] Address [address] [facility] [place] [id number] Care Team Providers Care Golf Cart Mechanic Name Role Phone Kevin Maria MD Primary Care Provider [phone] Kevin Maria MD Primary Care Provider [phone] Houston Piedra DO Primary Care Provider [phone] Ye Martin MD Unavailable [phone] Kevin Finch MD Primary Care Provider [phone] Edi Patel MD Unavailable [phone] Encounter Details Date Type Department Care Team (Late st Contact Info) Description 01/28/2016 Orders Only [facility] ProviderManpreet MD [address] [place] [address] Social History Tobacco Use Types Packs/Day Years Used Date Smoking Tobacco: Former Cigarettes Q uit: 03/07/1991 Alcohol Use Standard Drinks/Week Comments Yes 0 (1 standard drink = 0.6 oz pur e alcohol) Sex and Gender Information Value Date Recorded Sex Assigned at Not on file 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 us Historical Provider [facility] Final Result documented in this encounter Visit Diagnoses Not on filedocumented in this encounter Care Teams Golf Cart Mechanic Relationship Specialty Start Date End Date Kevin Maria MD [address] [place] [address] PCP - General 06/04/16 08/29/17 Kevin Maria MD [address] [address] PCP - General 10/17/12 06/03/16 Houston Piedra DO [address] [address] PCP - General Internal Medicine 12/18/18 01/02/23 Kevin Finch MD [address] [place] [address] PCP - General Family Practice 01/03/23 Ye Martin MD [address] [address] Consulting Physician Cardiology 12/29/21 Edi Patel MD [address] [place] [address] Surgeon Vascular Surgery 12/26/23 documented as of this encounter
[2024-10-02 12:14] VITALS: BP 136/92; PULSE 72; RESP 18; TEMP 36.2; O2SAT 98
== END 2024-10-02 13:10 | disposition home or self-care (01) ==
PROVIDERS: Emergency Provider Nurse Practitioner Family; PCP Nurse Practitioner Family
DX: M25.511 Pain in right shoulder (principal); S63.501A Unspecified sprain of right wrist, initial encounter; W19.XXXA Unspecified fall, initial encounter; I10 Essential (primary) hypertension; I48.20 Chronic atrial fibrillation, unspecified; E78.5 Hyperlipidemia, unspecified; I77.79 Dissection of other specified artery; Z79.01 Long term (current) use of anticoagulants; Z79.82 Long term (current) use of aspirin; Z87.891 Personal history of nicotine dependence; Z95.5 Presence of coronary angioplasty implant and graft; Z96.651 Presence of right artificial knee joint
CPT/HCPCS: 73030; 73110; 99214; G0463